=== PATIENT | female | born 1930 | race Caucasian/White ===

== ENCOUNTER 2017-06-04 17:20 | Emergency (ER) | payer MEDICARE, OTHER ==
[2014-11-10 16:21] VITALS: Ht 160 cm; Wt 63.5 kg
[~2017-06-04] VITALS: Ht 160 cm; Wt 63.5 kg
[~2017-06-04 17:20] MED LIST: ASPI81TA94 PO; CALC-703 PO; CEPH500C24 PO; CETI10CA8 PO; DOCU-299 PO; FESO8PT GT; FESO8PT PO; FURO-45 PO; GLUC-304 PO; LISI5TAB25 PO; LOR5 PO; LOR5/325 PO; MECL25TA9 PO; METO25TA93 PO; MULT-770 PO; NITR100C PO; ONDA4TAB PO; PRED20TA6 PO; SCOT TD; TOLT4CAP13 PO; Z-PAK PO
[2017-06-04] MEDS ORDERED: MECL12.5 PO (17:33)
--- NOTE | 2017-06-04 17:48 | ER Report ---
History and Physical Time Seen By MD: 17:48 Hx. of Stated Complaint: PATIENT REPORTS THAT SHE GOT DIZZ WHEN WALKING INTO THE BATHROOM AND FELL INTO HER BATHTUB. SHE HAS A SKIN TEAR ON HER RIGHT ARM HPI/ROS CHIEF COMPLAINT: Dizziness and fall HISTORY OF PRESENT ILLNESS: 87-year-old female patient presents to emergency room with complaint of a episode of dizziness and fall. Patient states she has a history of vertigo. She states she was going around the house clicking trash and adjust pick trash up in the bathroom when she became dizzy and fell into the bathtub. She states that she did not lose consciousness, she denies any headache, neck pain. Patient does have some tenderness to the low back. She denies any loss of bowel or bladder control. She states she has not taken any medication for this. Patient does have a skin tear to the left forearm. Patient doesn't have a current tetanus due to allergy. REVIEW OF SYSTEMS: Respiratory: No cough, no dyspnea. Cardiovascular: No chest pain, no palpitations. Gastrointestinal: No vomiting, no abdominal pain. Musculoskeletal: As noted above. Allergies: Coded Allergies: Tetanus Vaccines and Toxoid (Verified Allergy, Intermediate, 12/17/14) Home Meds Active Scripts Nitrofurantoin Monohyd/M-Cryst (MACROBID 100 MG CAPSULE) 100 Mg Capsule, 100 MG PO BID, #12 CAPSULE Prov:FIDE LINARES [facility] 06/04/17 Tramadol Hcl (TRAMADOL HCL) 50 Mg Tablet, 50 MG PO Q4-6H Y for PAIN, #6 TAB Prov:FIDE LINARES [facility] 06/04/17 Reported Medications Meclizine Hcl (MECLIZINE HCL) 12.5 Mg Tablet, 12.5 MG PO PRN 06/04/17 Furosemide (FUROSEMIDE) 20 Mg Tablet, 1 TAB PO DAILY, TAB 10/03/14 Aspirin (ASPIRIN) 81 Mg Tab.chew, 81 MG PO QDAY, TAB.CHEW TAKE 1 TABLET BY MOUTH EVERY DAY 10/03/14 Metoprolol Tartrate (METOPROLOL TARTRATE) 25 Mg Tablet, 1 TAB PO BID, TAB 10/03/14 Lisinopril (LISINOPRIL) 5 Mg Tablet, 5 MG PO QDAY, TAB 10/03/14 Fesoterodine Fumarate (TOVIAZ) 8 Mg Tabsr, 8 MG PO QHS 05/30/13 Past Medical/Surgical History Patient has a past medical history of hypertension, pneumonia, gallstones, hiatal hernia, cystocele, vertigo, where alcohol use. Patient has a surgical history of hysterectomy, tonsillectomy. Reviewed Nurses Notes: Yes Hx Smoking: No Smoking Status: Never Smoker Hx Substance Use Disorder: No Hx Alcohol Use: Yes (rare) Constitutional Vital Sign - Last 24 Hours 06/04/17 06/04/17 06/04/17 06/04/17 17:27 17:29 17:35 17:50 Pulse 72 74 71 Resp 20 15 B/P (MAP) 196/73 196/73 (114) Pulse Ox 96 96 92 06/04/17 06/04/17 06/04/17 06/04/17 18:00 18:05 18:40 18:45 Pulse 68 66 Resp 12 13 B/P (MAP) 167/80 (109) 181/73 (109) Pulse Ox 93 90 06/04/17 06/04/17 06/04/17 06/04/17 19:00 19:15 19:30 19:45 Pulse 70 ??? 68 74 Resp 14 45 15 10 B/P (MAP) 175/81 (112) 162/71 (101) Pulse Ox 96 92 06/04/17 19:50 Resp 37 Pulse Ox 92 Intake and Output 06/04/17 06/04/17 06/05/17 15:00 23:00 07:00 Intake Total 500 ml Balance 500 ml Physical Exam General Appearance: The patient is alert, has no immediate need for airway protection and no current signs of toxicity. ENT: Tympanic membranes are pearly-ledbetter, auditory canals are patent, mucous membranes are moist. Respiratory: Chest is non tender, lungs are clear to auscultation. Cardiac: regular rate and rhythm Gastrointestinal: Abdomen is soft and non tender, no masses, bowel sounds normal. Musculoskeletal: Neck: Neck is supple and non tender. Extremities have full range of motion and are non tender. Back: Patient has tenderness to the right side of the lumbar spine, some swelling is noted to palpation. Skin: No rashes or lesions. Patient has a skin tear to right forearm. [ ] DIFFERENTIAL DIAGNOSIS: After history and physical exam differential diagnosis was considered for intracranial bleed, 4 to go, viral syndrome, skin tear, fall. Medical Decision Making Data Points Result Diagram: 06/04/17180606/04/171806 Laboratory Hematology Test 06/04/17 18:07 06/04/17 18:20 Red Blood Count 3.64 M/uL (4.17-5.56) Mean Corpuscular Volume 89.8 fL (80.0-96.0) Mean Corpuscular Hemoglobin 30.2 pg (26.0-33.0) Mean Corpuscular Hemoglobin Concent 33.7 g/dL (32.0-36.0) Red Cell Distribution Width 13.5 % (11.5-14.5) Mean Platelet Volume 10.2 fL (7.2-11.1) Neutrophils (%) (Auto) 54.9 % (39.4-72.5) Lymphocytes (%) (Auto) 23.1 % (17.6-49.6) Monocytes (%) (Auto) 17.0 % (4.1-12.4) Eosinophils (%) (Auto) 4.1 % (0.4-6.7) Basophils (%) (Auto) 0.9 % (0.3-1.4) Nucleated RBC Relative Count (auto) 0.0 /100WBC Neutrophils # (Auto) 3.7 K/uL (2.0-7.4) Lymphocytes # (Auto) 1.6 K/uL (1.3-3.6) Monocytes # (Auto) 1.2 K/uL (0.3-1.0) Eosinophils # (Auto) 0.3 K/uL (0.0-0.5) Basophils # (Auto) 0.1 K/uL (0.0-0.1) Nucleated RBC Absolute Count (auto) 0.00 K/uL Sodium Level 134 mmol/L (137-145) Potassium Level 4.4 mmol/L (3.5-5.0) Chloride Level 100 mmol/L (98-107) Carbon Dioxide Level 27 mmol/L (22-31) Blood Urea Nitrogen 26 mg/dl (7-18) Creatinine 0.90 mg/dl (0.52-1.04) Glomerular Filtration Rate Calc 59.4 Random Glucose 77 mg/dl (75-110) Calcium Level 9.6 mg/dl (8.4-10.2) Total Bilirubin 0.3 mg/dl (0.2-1.3) Aspartate Amino Transf (AST/SGOT) 17 U/L (0-35) Alanine Aminotransferase (ALT/SGPT) 27 U/L (0-56) Alkaline Phosphatase 98 U/L (0-126) Troponin I < 0.012 ng/ml Total Protein 6.7 gm/dl (6.3-8.2) Albumin 3.7 g/dl (3.5-5.0) Urine Color Straw Urine Clarity Clear Urine pH 5.0 pH (4.8-9.5) Urine Specific [place] 1.008 Urine Protein Negative mg/dL (NEGATIVE) Urine Glucose (UA) Negative mg/dL (NEGATIVE) Urine Ketones Negative mg/dL (NEGATIVE) Urine Blood Negative (NEGATIVE) Urine Nitrite Negative (NEGATIVE) Urine Bilirubin Negative (NEGATIVE) Urine Urobilinogen Negative mg/dL (0.2-1.9) Urine Leukocyte Esterase Trace (NEGATIVE) Urine RBC 1 /HPF (0-2/HPF) Urine WBC 6 /HPF (0-5/HPF) Urine Squamous Epithelial Cells None /LPF (</=FEW) Urine Bacteria Negative /HPF (NONE-FEW) Urine Mucus None /HPF (NONE-FEW) Chemistry Test 06/04/17 18:07 06/04/17 18:20 White Blood Count 6.8 k/uL (4.5-11.0) Red Blood Count 3.64 M/uL (4.17-5.56) Hemoglobin 11.0 g/dL (12.0-16.0) Hematocrit 32.7 % (34.0-47.0) Mean Corpuscular Volume 89.8 fL (80.0-96.0) Mean Corpuscular Hemoglobin 30.2 pg (26.0-33.0) Mean Corpuscular Hemoglobin Concent 33.7 g/dL (32.0-36.0) Red Cell Distribution Width 13.5 % (11.5-14.5) Platelet Count 280 K/uL (150-450) Mean Platelet Volume 10.2 fL (7.2-11.1) Neutrophils (%) (Auto) 54.9 % (39.4-72.5) Lymphocytes (%) (Auto) 23.1 % (17.6-49.6) Monocytes (%) (Auto) 17.0 % (4.1-12.4) Eosinophils (%) (Auto) 4.1 % (0.4-6.7) Basophils (%) (Auto) 0.9 % (0.3-1.4) Nucleated RBC Relative Count (auto) 0.0 /100WBC Neutrophils # (Auto) 3.7 K/uL (2.0-7.4) Lymphocytes # (Auto) 1.6 K/uL (1.3-3.6) Monocytes # (Auto) 1.2 K/uL (0.3-1.0) Eosinophils # (Auto) 0.3 K/uL (0.0-0.5) Basophils # (Auto) 0.1 K/uL (0.0-0.1) Nucleated RBC Absolute Count (auto) 0.00 K/uL Glomerular Filtration Rate Calc 59.4 Calcium Level 9.6 mg/dl (8.4-10.2) Total Bilirubin 0.3 mg/dl (0.2-1.3) Aspartate Amino Transf (AST/SGOT) 17 U/L (0-35) Alanine Aminotransferase (ALT/SGPT) 27 U/L (0-56) Alkaline Phosphatase 98 U/L (0-126) Troponin I < 0.012 ng/ml Total Protein 6.7 gm/dl (6.3-8.2) Albumin 3.7 g/dl (3.5-5.0) Urine Color Straw Urine Clarity Clear Urine pH 5.0 pH (4.8-9.5) Urine Specific [place] 1.008 Urine Protein Negative mg/dL (NEGATIVE) Urine Glucose (UA) Negative mg/dL (NEGATIVE) Urine Ketones Negative mg/dL (NEGATIVE) Urine Blood Negative (NEGATIVE) Urine Nitrite Negative (NEGATIVE) Urine Bilirubin Negative (NEGATIVE) Urine Urobilinogen Negative mg/dL (0.2-1.9) Urine Leukocyte Esterase Trace (NEGATIVE) Urine RBC 1 /HPF (0-2/HPF) Urine WBC 6 /HPF (0-5/HPF) Urine Squamous Epithelial Cells None /LPF (</=FEW) Urine Bacteria Negative /HPF (NONE-FEW) Urine Mucus None /HPF (NONE-FEW) Urinalysis Test 06/04/17 18:20 Urine Color Straw Urine Clarity Clear Urine pH 5.0 pH (4.8-9.5) Urine Specific [place] 1.008 Urine Protein Negative mg/dL (NEGATIVE) Urine Glucose (UA) Negative mg/dL (NEGATIVE) Urine Ketones Negative mg/dL (NEGATIVE) Urine Blood Negative (NEGATIVE) Urine Nitrite Negative (NEGATIVE) Urine Bilirubin Negative (NEGATIVE) Urine Urobilinogen Negative mg/dL (0.2-1.9) Urine Leukocyte Esterase Trace (NEGATIVE) Urine RBC 1 /HPF (0-2/HPF) Urine WBC 6 /HPF (0-5/HPF) Urine Squamous Epithelial Cells None /LPF (</=FEW) Urine Bacteria Negative /HPF (NONE-FEW) Urine Mucus None /HPF (NONE-FEW) EKG/Imaging EKG Interpretation 12 lead EKG: Rhythm: normal sinus rhythm with a ventricular rate of 69 bpm. Amorita: normal QRS: normal ST segments: normal Imaging CT OF THE BRAIN WITHOUT CONTRAST HISTORY: Dizziness PROCEDURE: 3.0 mm contiguous axial sections were performed through the brain. Sagittal and coronal reformats were submitted. COMPARISON: CT brain December 07, 2016 FINDINGS: BRAIN: Brain and intracranial structures: There is no hemorrhage or CT evidence of acute infarct. A 9 mm partially calcified lesion along the falx anteriorly is likely a meningioma. This has not significantly changed. Periventricular and deep white matter hypoattenuation likely reflects chronic ischemic change. Cavernous carotid atherosclerosis is prominent. Orbits (included portions): Unremarkable. Scalp: Normal. Skull: Normal. Paranasal sinuses and mastoid air cells (included portions): Normal. IMPRESSION: No evidence of acute intracranial abnormality. 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 One of the following dose optimization techniques was utilized in the performance of this exam: Automated exposure control; adjustment of the mA and/ or kV according to the patient's size; or use of an iterative reconstruction technique. Specific details can be referenced in the facility's radiology CT exam operational policy. Report Dictated By: Claude Metz MD at 06/04/2017 7:01 PM Report E-Signed By: Claude Metz MD at 06/04/2017 7:07 PM INDICATION: dizziness, fall. DATE: 06/04/2017 7:10 PM. TECHNIQUE: L-SPINE W/O CONTRAST. Noncontrast axial CT imaging was performed of the lumbar spine with sagittal and coronal reformats. One of the following dose optimization techniques was utilized in the performance of this exam: Automated exposure control; adjustment of the mA and/or kV according to the patient's size ; or use of an iterative reconstruction technique. Specific details can be referenced in the facility's radiology CT exam operational policy. COMPARISON: December 07, 2016 CT. FINDINGS: Bone density is diffusely decreased. There is severe multilevel disc, endplate, and facet arthropathy in the lumbar spine. Disc and endplate degenerative findings are most notable at L4-5 with extensive endplate sclerosis. Facet arthropathy is severe L5-S1, especially on the right. There is no lumbar spine fracture or dislocation. IMPRESSION: Multilevel degenerative findings but no lumbar spine fracture or dislocation. Report Dictated By: Claude Metz MD at 06/04/2017 7:10 PM Report E-Signed By: Claude Metz MD at 06/04/2017 7:18 PM ED Course/Re-evaluation ED Course Patient was admitted to exam room, history and physical were obtained. Differential diagnoses were considered. On examination patient had no tenderness to the head, cervical spine or thoracic or lumbar spine. Patient did have some tenderness to the paraspinal muscles to the right of the lumbar spine. Due to the patient's age and due to the fall a CT scan of the head was done due to pain a CT scan of the lumbar spine was done. The imaging was negative, a CBC, CMP, urinalysis was done. Patient did have 6 white blood cells per high-power field and trace leukocyte esterase. She had no skin cells I believe that she is likely developing a urinary tract infection. Which we will treat with Macrobid and culture the urine. Patient also had an elevated BUN (26 ) when compared to her creatinine (0.9). I believe that she does have some dehydration. Patient was given a half liter of normal saline. After that we take the patient up and walk her. Patient had just a slight bit of dizziness. Patient also has skin tear to the right elbow. Was initially treated with LET and then cleaned and repaired by pulling the skin back over the wound and then covering with a Tegaderm. I discussed with patient she is to leave the Tegaderm on it falls off. She may go ahead and shower normally with that. Results of the CT scans were negative. I discussed this with the patient as well. Patient states she's feeling better would like to go home. We'll go ahead and discharge patient home. She states she would like something for pain and will give her a very limited supply of tramadol she can take as needed for pain. The patient and her family verbalized understanding and agreement with plan. Decision to Disposition Date: Jun 04, 2017 Decision to Disposition Time: 20:13 Depart Departure Latest Vital Signs Vital Signs Date Time Temp Pulse Resp B/P (MAP) Pulse Ox O2 Delivery O2 Flow Rate FiO2 06/04/17 19:50 37 92 06/04/17 19:45 74 06/04/17 19:30 162/71 (101) Impression: Primary Impression: Dizziness Additional Impressions: Dehydration UTI (urinary tract infection) Contusion of back Skin tear of elbow without complication Condition: Improved Disposition: HOME OR SELF-CARE New Scripts Nitrofurantoin Monohyd/M-Cryst (MACROBID 100 MG CAPSULE) 100 Mg Capsule 100 MG PO BID, #12 CAPSULE Prov: FIDE LINARES 06/04/17 Tramadol Hcl (TRAMADOL HCL) 50 Mg Tablet 50 MG PO Q4-6H Y for PAIN, #6 TAB Prov: FIDE LINARES 06/04/17 Patient Instructions: Dehydration (ED), Dizziness (ED) Additional Instructions: Increase fluid intake. Get plenty of rest. Limit activity by pain. Take the antibiotics as directed. Continue with your normal medications. You may apply ice to your back. Leave the dressing on your elbow until it falls off. It is fine to shower normally. We are culturing your urine and will call to change antibiotics if we need to. Problem Qualifiers Additional Impressions: UTI (urinary tract infection) Urinary tract infection type: acute cystitis Hematuria presence: without hematuria Qualified Codes: N30.00 - Acute cystitis without hematuria Contusion of back Encounter type: initial encounter Laterality: right Qualified Codes: S20.221A - Contusion of right back wall of thorax, initial encounter Skin tear of elbow without complication Encounter type: initial encounter Laterality: right Qualified Codes: S51.011A - Laceration without foreign body of right elbow, initial encounter FIDE LINARES Jun 04, 2017 17:48
[2017-06-04] MEDS ORDERED: TETRACAIN/EPI/LIDO GEL 3ML SYR TP ONE (18:00)
[2017-06-04 18:19] LABS: PLATELET COUNT, AUTOMATED 280 K/uL (150-450)
--- NOTE | 2017-06-04 18:22 | EKG ---
FACILITY: [facility] [place]IENT NAME: BELA STEWART : [id number] MR: [id number] V: [id number] EXAM DATE: ORDERING PHYSICIAN: FIDE LINARES TECHNOLOGIST: ARUNA Nicole Reason : TAUMA-ARM Blood Pressure : / mmHG Vent. Rate : 069 BPM Atrial Rate : 069 BPM P-R Int : 184 ms QRS Dur : 080 ms QT Int : 364 ms P-R-T Axes : 008 003 008 degrees QTc Int : 390 ms Normal sinus rhythm Normal ECG When compared with ECG of 11-MAY-2016 07:01, No significant change was found Confirmed by JOI MOCTEZUMA ([id number]) on 06/05/2017 6:24:17 AM Referred By: Confirmed By:JOI MOCTEZUMA
[2017-06-04] MEDS ORDERED: NS(*) 0.9% 500 ML BAG 500 ML IV ONE (18:45)
--- NOTE | 2017-06-04 19:12 | RADIOLOGY IMAGING REPORT ---
FACILITY: [facility] - [place] PATIENT NAME: Myriam Scruggs : 1930 MR: [id number] V: [id number] EXAM DATE: ORDERING PHYSICIAN: FIDE LINARES TECHNOLOGIST: Location: [facility] Patient: Myriam Scruggs : 1930 Visit/Account:[id number] Date of Sevice: 06/04/2017 CT OF THE BRAIN WITHOUT CONTRAST HISTORY: Dizziness PROCEDURE: 3.0 mm contiguous axial sections were performed through the brain. Sagittal and coronal r eformats were submitted. COMPARISON: CT brain December 07, 2016 FINDINGS: BRAIN: Brain and intracranial structures: There is no hemorrhage or CT evidence of acute infarct. A 9 mm par tially calcified lesion along the falx anteriorly is likely a meningioma. This has not significantly changed. Periventricular and deep white matter hypoattenuation likely reflects chronic ischemic [place] e. Cavernous carotid atherosclerosis is prominent. Orbits (included portions): Unremarkable. Scalp: Normal. Skull: Normal. Paranasal sinuses and mastoid air cells (included portions): Normal. IMPRESSION: No evidence of acute intracranial abnormality. 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 One of the following dose optimization techniques was utilized in the performance of this exam: Autom ated exposure control; adjustment of the mA and/or kV according to the patient's size; or use of an i terative reconstruction technique. Specific details can be referenced in the facility's radiology C T exam operational policy. Report Dictated By: Claude Metz MD at 06/04/2017 7:01 PM Report E-Signed By: Claude Metz MD at 06/04/2017 7:07 PM WSN:[id number]
--- NOTE | 2017-06-04 19:22 | RADIOLOGY IMAGING REPORT ---
FACILITY: [facility] PATIENT NAME: Myriam Scruggs : 1930 MR: [id number] V: [id number] EXAM DATE: ORDERING PHYSICIAN: FIDE LINARES TECHNOLOGIST: Location: [facility] - [place] Patient: Myriam Scruggs : 1930 Visit/Account:[id number] Date of Sevice: 06/04/2017 INDICATION: dizziness, fall. DATE: 06/04/2017 7:10 PM. TECHNIQUE: L-SPINE W/O CONTRAST. Noncontrast axial CT imaging was performed of the lumbar spine with sagittal and coronal reformats. One of the following dose optimization techniques was utilized in the performance of this exam: Automated exposure control; adjustment of the mA and/or kV according to th e patient's size; or use of an iterative reconstruction technique. Specific details can be referenc ed in the facility's radiology CT exam operational policy. COMPARISON: December 07, 2016 CT. FINDINGS: Bone density is diffusely decreased. There is severe multilevel disc, endplate, and facet arthropathy in the lumbar spine. Disc and endplate degenerative findings are most notable at L4-5 with extensive endplate sclerosis. Facet arthropathy is severe L5-S1, especially on the right. There is no lumbar s pine fracture or dislocation. IMPRESSION: Multilevel degenerative findings but no lumbar spine fracture or dislocation. Report Dictated By: Claude Metz MD at 06/04/2017 7:10 PM Report E-Signed By: Claude Metz MD at 06/04/2017 7:18 PM WSN:[id number]
[2017-06-04 19:30] VITALS: BP 162/71
[2017-06-04] MEDS ORDERED: TRAM-420 PO (20:10)
[2017-06-04] MEDS ORDERED: NITR-105 PO (20:10)
[2017-06-04] MEDS ORDERED: NITROFURANTOIN MONO 100 MG PO ONE (20:20)
[2017-06-04] MEDS ORDERED: traMADol 50 MG TAB TH 2 TAB/BOTTLE PO ONE (20:20)
== END 2017-06-04 20:27 | disposition home or self-care (01) ==
LOC: ER 17:33
DX: N30.00 Acute cystitis without hematuria (principal); E86.0 Dehydration; S20.221A Contusion of right back wall of thorax, initial encounter; S51.011A Laceration without foreign body of right elbow, initial encounter
CPT/HCPCS: 70450; 72131; 81001; 84484; 85025; 87088; 93005; 96360; 99284; A9270; J7040; 82040; 82247; 82310; 82374; 82435; 82565; 82947; 84075; 84132; 84155; 84295; 84450; 84460; 84520; C9399

== ENCOUNTER 2017-08-14 21:11 | Inpatient (IN) | payer MEDICARE, OTHER ==
[2014-11-10 16:21] VITALS: Wt 67.2 kg
[~2017-08-14 21:11] MED LIST changes: -DOCU-202 PO; -IRO150 PO; -PANT40TA65 PO; -POLY17PO21 PO; -POLY17PO25 PO; -ROSU5TAB18
[2017-08-14] MEDS ORDERED: POLY17PO25 PO (21:28)
[2017-08-14] MEDS ORDERED: fentaNYL CITR 100 MCG/2 ML AMP ONE (21:34)
[2017-08-14] MEDS ORDERED: fentaNYL CITR 100 MCG/2 ML AMP IVP ONE (21:40)
--- NOTE | 2017-08-14 21:41 | ER Report ---
History and Physical Time Seen By MD: 21:25 Hx. of Stated Complaint: PT REPORTS LOW ABDOMINAL PAIN, STARTING AFTER DINNER, NAUSEA HPI/ROS CHIEF COMPLAINT: abdominal pain HISTORY OF PRESENT ILLNESS: PT stated with 7/10 abdominal pain at about 8pm tonight. PT states that she had not felt well for a day or so but unable to discribe until tonight. + cramping. + nausea. NO vomiting. Pain is worse periumbilical. Thought she had to have a bm but was unable to due so. PT did have a normal bm this morning. no dysuria. no fevers. PT denies any chest pain. no sob. no uri symptoms. REVIEW OF SYSTEMS: Constitutional: No fever, no chills. Eyes: No discharge. ENT: No sore throat. Cardiovascular: No chest pain, no palpitations. Respiratory: No cough, no shortness of breath. Gastrointestinal: + abdominal pain, + nausea, no vomiting. Genitourinary: No hematuria. Musculoskeletal: No back pain. Skin: No rashes. Neurological: No headache. Allergies: Coded Allergies: Tetanus Vaccines and Toxoid (Verified Allergy, Intermediate, 12/17/14) Home Meds Active Scripts Tramadol Hcl (TRAMADOL HCL) 50 Mg Tablet, 50 MG PO Q4-6H Y for PAIN, #6 TAB Prov:FIDE LINARES CONSTRUCTION SALES REPRESENTATIVE 06/04/17 Reported Medications Polyethylene Glycol 3350 (MIRALAX) 17 Gm Powd.pack, 17 GM PO, PKT 08/14/17 Meclizine Hcl (MECLIZINE HCL) 12.5 Mg Tablet, 12.5 MG PO PRN 06/04/17 Furosemide (FUROSEMIDE) 20 Mg Tablet, 1 TAB PO DAILY, TAB 10/03/14 Aspirin (ASPIRIN) 81 Mg Tab.chew, 81 MG PO QDAY, TAB.CHEW TAKE 1 TABLET BY MOUTH EVERY DAY 10/03/14 Metoprolol Tartrate (METOPROLOL TARTRATE) 25 Mg Tablet, 1 TAB PO BID, TAB 10/03/14 Lisinopril (LISINOPRIL) 5 Mg Tablet, 5 MG PO QDAY, TAB 10/03/14 Fesoterodine Fumarate (TOVIAZ) 8 Mg Tabsr, 8 MG PO QHS 05/30/13 Discontinued Scripts Nitrofurantoin Monohyd/M-Cryst (MACROBID 100 MG CAPSULE) 100 Mg Capsule, 100 MG PO BID, #12 CAPSULE Prov:FIDE LINARES CONSTRUCTION SALES REPRESENTATIVE 06/04/17 Past Medical/Surgical History Pmhx: hypertension, pneumonia, gallstones, hiatal hernia, cystocele, vertigo Pshx: hysterectomy, tonsillectomy,shilo Reviewed Nurses Notes: Yes Old Medical Records Reviewed: Yes Hx Smoking: No Smoking Status: Never Smoker Hx Substance Use Disorder: No Hx Alcohol Use: Yes (rare) Constitutional Vital Sign - Last 24 Hours 08/14/17 08/14/17 08/14/17 08/14/17 21:11 21:13 21:15 21:18 Temp 99.8 Pulse ??? 77 Resp 16 B/P (MAP) 221/93 224/87 (132) 221/93 (135) Pulse Ox 98 O2 Delivery Room Air 08/14/17 08/14/17 08/14/17 08/14/17 21:26 21:30 21:41 21:56 Pulse 77 73 72 Resp 16 6 15 B/P (MAP) 201/115 (143) Pulse Ox 92 98 97 08/14/17 08/14/17 08/14/17 08/14/17 22:00 22:03 22:08 22:46 Pulse 78 Resp 21 B/P (MAP) 185/177 (180) 165/73 (103) 152/70 (97) Pulse Ox 90 08/14/17 08/14/17 08/14/17 08/14/17 22:53 23:00 23:08 23:20 Pulse 79 75 Resp 11 B/P (MAP) 165/72 (103) 170/106 (127) Pulse Ox 95 85 08/14/17 08/14/17 08/14/17 08/14/17 23:23 23:38 23:40 23:53 Pulse 78 71 71 Resp 10 19 B/P (MAP) 165/74 (104) Pulse Ox 96 96 96 Physical Exam General Appearance: The patient is alert, has no immediate need for airway protection and no signs of toxicity. Eyes: Pupils equal and round no pallor or injection, EOMI ENT: no pharyngeal erythema or exudates, Mucous membranes are moist, TM are nl b/l Respiratory: There are no retractions, lungs are clear to auscultation. Cardiovascular: Regular rate and rhythm. pulses are equal and symmetrical Gastrointestinal: Abdomen is soft with mild tendenrss epigastric and llq, no masses, bowel sounds normal, no guarding, no rigidity or rebound Neurological: Cranial nerves II-XII grossly intact, no sensory or motor loss Skin: Warm and dry, no rashes. Musculoskeletal: Neck is supple non tender, no vertebral tenderness Extremities are nontender, non swollen and have full range of motion. DIFFERENTIAL DIAGNOSIS: After history and physical exam differential diagnosis was considered for pancreatitis, colitis, diverticulitis, pud, ibs, cancer Medical Decision Making Data Points Result Diagram: 08/14/17211408/14/172114 Laboratory Hematology Test 08/14/17 21:15 08/14/17 22:00 Red Blood Count 4.03 M/uL (4.17-5.56) Mean Corpuscular Volume 79.8 fL (80.0-96.0) Mean Corpuscular Hemoglobin 25.7 pg (26.0-33.0) Mean Corpuscular Hemoglobin Concent 32.2 g/dL (32.0-36.0) Red Cell Distribution Width 15.5 % (11.5-14.5) Mean Platelet Volume 10.4 fL (7.2-11.1) Neutrophils (%) (Auto) 68.0 % (39.4-72.5) Lymphocytes (%) (Auto) 20.4 % (17.6-49.6) Monocytes (%) (Auto) 9.0 % (4.1-12.4) Eosinophils (%) (Auto) 1.4 % (0.4-6.7) Basophils (%) (Auto) 1.2 % (0.3-1.4) Nucleated RBC Relative Count (auto) 0.0 /100WBC Neutrophils # (Auto) 10.4 K/uL (2.0-7.4) Lymphocytes # (Auto) 3.1 K/uL (1.3-3.6) Monocytes # (Auto) 1.4 K/uL (0.3-1.0) Eosinophils # (Auto) 0.2 K/uL (0.0-0.5) Basophils # (Auto) 0.2 K/uL (0.0-0.1) Nucleated RBC Absolute Count (auto) 0.00 K/uL Sodium Level 134 mmol/L (137-145) Potassium Level 4.0 mmol/L (3.5-5.0) Chloride Level 94 mmol/L (98-107) Carbon Dioxide Level 24 mmol/L (22-31) Blood Urea Nitrogen 24 mg/dl (7-18) Creatinine 1.00 mg/dl (0.52-1.04) Glomerular Filtration Rate Calc 52.6 Random Glucose 157 mg/dl (75-110) Calcium Level 10.2 mg/dl (8.4-10.2) Total Bilirubin 0.4 mg/dl (0.2-1.3) Aspartate Amino Transf (AST/SGOT) 48 U/L (0-35) Alanine Aminotransferase (ALT/SGPT) 20 U/L (0-56) Alkaline Phosphatase 120 U/L (0-126) Total Protein 7.5 gm/dl (6.3-8.2) Albumin 4.3 g/dl (3.5-5.0) Lipase 191 U/L (23-300) Urine Color Yellow Urine Clarity Slightly-cloudy Urine pH 7.0 pH (4.8-9.5) Urine Specific Superior 1.017 Urine Protein Negative mg/dL (NEGATIVE) Urine Glucose (UA) Negative mg/dL (NEGATIVE) Urine Ketones 20 mg/dL (NEGATIVE) Urine Blood Negative (NEGATIVE) Urine Nitrite Negative (NEGATIVE) Urine Bilirubin Negative (NEGATIVE) Urine Urobilinogen Negative mg/dL (0.2-1.9) Urine Leukocyte Esterase Negative (NEGATIVE) Urine RBC 1 /HPF (0-2/HPF) Urine WBC 3 /HPF (0-5/HPF) Urine Squamous Epithelial Cells None /LPF (NONE-FEW) Urine Amorphous Crystals Few /HPF Urine Bacteria Negative /HPF (NONE-FEW) Urine Mucus None /HPF (NONE-FEW) Chemistry Test 08/14/17 21:15 08/14/17 22:00 White Blood Count 15.3 k/uL (4.5-11.0) Red Blood Count 4.03 M/uL (4.17-5.56) Hemoglobin 10.4 g/dL (12.0-16.0) Hematocrit 32.2 % (34.0-47.0) Mean Corpuscular Volume 79.8 fL (80.0-96.0) Mean Corpuscular Hemoglobin 25.7 pg (26.0-33.0) Mean Corpuscular Hemoglobin Concent 32.2 g/dL (32.0-36.0) Red Cell Distribution Width 15.5 % (11.5-14.5) Platelet Count 411 K/uL (150-450) Mean Platelet Volume 10.4 fL (7.2-11.1) Neutrophils (%) (Auto) 68.0 % (39.4-72.5) Lymphocytes (%) (Auto) 20.4 % (17.6-49.6) Monocytes (%) (Auto) 9.0 % (4.1-12.4) Eosinophils (%) (Auto) 1.4 % (0.4-6.7) Basophils (%) (Auto) 1.2 % (0.3-1.4) Nucleated RBC Relative Count (auto) 0.0 /100WBC Neutrophils # (Auto) 10.4 K/uL (2.0-7.4) Lymphocytes # (Auto) 3.1 K/uL (1.3-3.6) Monocytes # (Auto) 1.4 K/uL (0.3-1.0) Eosinophils # (Auto) 0.2 K/uL (0.0-0.5) Basophils # (Auto) 0.2 K/uL (0.0-0.1) Nucleated RBC Absolute Count (auto) 0.00 K/uL Glomerular Filtration Rate Calc 52.6 Calcium Level 10.2 mg/dl (8.4-10.2) Total Bilirubin 0.4 mg/dl (0.2-1.3) Aspartate Amino Transf (AST/SGOT) 48 U/L (0-35) Alanine Aminotransferase (ALT/SGPT) 20 U/L (0-56) Alkaline Phosphatase 120 U/L (0-126) Total Protein 7.5 gm/dl (6.3-8.2) Albumin 4.3 g/dl (3.5-5.0) Lipase 191 U/L (23-300) Urine Color Yellow Urine Clarity Slightly-cloudy Urine pH 7.0 pH (4.8-9.5) Urine Specific Superior 1.017 Urine Protein Negative mg/dL (NEGATIVE) Urine Glucose (UA) Negative mg/dL (NEGATIVE) Urine Ketones 20 mg/dL (NEGATIVE) Urine Blood Negative (NEGATIVE) Urine Nitrite Negative (NEGATIVE) Urine Bilirubin Negative (NEGATIVE) Urine Urobilinogen Negative mg/dL (0.2-1.9) Urine Leukocyte Esterase Negative (NEGATIVE) Urine RBC 1 /HPF (0-2/HPF) Urine WBC 3 /HPF (0-5/HPF) Urine Squamous Epithelial Cells None /LPF (NONE-FEW) Urine Amorphous Crystals Few /HPF Urine Bacteria Negative /HPF (NONE-FEW) Urine Mucus None /HPF (NONE-FEW) Urinalysis Test 08/14/17 22:00 Urine Color Yellow Urine Clarity Slightly-cloudy Urine pH 7.0 pH (4.8-9.5) Urine Specific Superior 1.017 Urine Protein Negative mg/dL (NEGATIVE) Urine Glucose (UA) Negative mg/dL (NEGATIVE) Urine Ketones 20 mg/dL (NEGATIVE) Urine Blood Negative (NEGATIVE) Urine Nitrite Negative (NEGATIVE) Urine Bilirubin Negative (NEGATIVE) Urine Urobilinogen Negative mg/dL (0.2-1.9) Urine Leukocyte Esterase Negative (NEGATIVE) Urine RBC 1 /HPF (0-2/HPF) Urine WBC 3 /HPF (0-5/HPF) Urine Squamous Epithelial Cells None /LPF (NONE-FEW) Urine Amorphous Crystals Few /HPF Urine Bacteria Negative /HPF (NONE-FEW) Urine Mucus None /HPF (NONE-FEW) EKG/Imaging EKG Interpretation nsr @ 74 with no acute changes ED Course/Re-evaluation Clinical Indication for ER IV: Hydration, IV Access ED Course check labs and ct Dr. Hernandez to admit. Unclear if pt has colitis, ileus vs psbo. WIll admit to observe due to pts age. Decision to Disposition Date: Aug 15, 2017 Decision to Disposition Time: 00:13 Depart Departure Latest Vital Signs Vital Signs Date Time Temp Pulse Resp B/P (MAP) Pulse Ox O2 Delivery O2 Flow Rate FiO2 08/14/17 23:53 71 96 08/14/17 23:40 165/74 (104) 08/14/17 23:38 19 08/14/17 21:13 99.8 Room Air Impression: Primary Impression: Abdominal pain Additional Impression: Enterocolitis Condition: Condition Unchanged Disposition: Admitted from ER Problem Qualifiers Primary Impression: Abdominal pain Abdominal location: periumbilical Qualified Codes: R10.33 - Periumbilical pain SHAWN CARRERA DO Aug 14, 2017 21:41
[2017-08-14 21:53] LABS: PLATELET COUNT, AUTOMATED 411 K/uL (150-450)
--- NOTE | 2017-08-14 21:58 | EKG ---
FACILITY: [facility] - [place] PATIENT NAME: BELA STEWART : [id number] MR: [id number] V: [id number] EXAM DATE: ORDERING PHYSICIAN: SHAWN CARRERA TECHNOLOGIST: STEVEN Test Reason : CARIDAC Blood Pressure : / mmHG Vent. Rate : 074 BPM Atrial Rate : 074 BPM P-R Int : 148 ms QRS Dur : 086 ms QT Int : 362 ms P-R-T Axes : 051 027 047 degrees QTc Int : 401 ms Normal sinus rhythm Normal ECG When compared with ECG of 04-JUN-2017 17:33, T wave amplitude has increased in Lateral leads Confirmed by AARON BROWN ([id number]) on 08/15/2017 7:09:18 AM Referred By: Confirmed By:AARON BROWN
[2017-08-14] MEDS ORDERED: NS(*) 0.9% 1000 ML BAG 1,000 ML IV ONE (22:05)
[2017-08-14] MEDS ORDERED: EMS NS 0.9%(*) 1000 ML BAG 1,000 ML IV ONE (22:10)
[2017-08-14] MEDS ORDERED: IOPAMIDOL 76% 75 ML INFUS BTL 75 ML ONE (22:16)
--- NOTE | 2017-08-14 23:43 | RADIOLOGY IMAGING REPORT ---
FACILITY: [facility] - [place] PATIENT NAME: Myriam Scruggs : 1930 MR: [id number] V: [id number] EXAM DATE: ORDERING PHYSICIAN: SHAWN CARRERA TECHNOLOGIST: Location: [facility] [place] Patient: Myriam Scruggs : 1930 Visit/Account:[id number] Date of Sevice: 08/14/2017 COMPUTED TOMOGRAPHY ABDOMEN AND PELVIS WITH INTRAVENOUS CONTRAST DATE OF EXAM: 08/14/2017 9:57 PM INDICATION: Periumbilical pain after dinner. History of cholecystectomy and hiatal hernia. COMPARISON: CTA abdomen and pelvis 11/10/2014. TECHNIQUE: Contrast enhanced abdomen and pelvis CT performed during the injection of 75 ml of Isovue 370. Sagittal and coronal reconstructions were performed. One of the following dose optimization te chniques was utilized in the performance of this exam: Automated exposure control; adjustment of the mA and/or kV according to the patient's size; or use of an iterative reconstruction technique. [facility] details can be referenced in the facility's radiology CT exam operational policy. FINDINGS: Lung bases: Mild scarring/atelectasis. Liver and hepatic vasculature: Normal. Gallbladder and bile ducts: Cholecystectomy. Spleen: Normal. Pancreas: Normal. Adrenals: Normal. Kidneys, ureters and bladder: No acute bony or suspicious lesion. Kidneys are mildly atrophic. Retroperitoneum and aorta: Nonaneurysmal aorta with mild atherosclerosis. No adenopathy. GI tract, mesentery and peritoneum: There are multiple prominent fluid filled loops of distal small bowel, as well as fluid in the proximal colon. There is likely a degree of associated wall thickenin g and enhancement. Small bowel loops measure up to 3.4 cm in diameter. The terminal ileum is decomp ressed. Small volume of free fluid the abdomen and pelvis is likely reactive. No pneumatosis or pneumoperito neum. Normal appendix. Distal esophagus is fluid-filled. Severe sigmoid diverticulosis. Uterus and adnexa: Hysterectomy. Bones and soft tissues: No acute abnormality or suspicious lesion. Remote right rib fractures. Mil d rightward curvature of the lumbar spine with moderate multilevel spondylosis. IMPRESSION: 1. Suspected infectious or inflammatory enterocolitis with associated reactive free fluid. Some of the small bowel loops measuring up to 3.4 cm in diameter, and a degree of ileus or obstruction is not excluded. 2. Fluid in the distal esophagus may indicate reflux or dysmotility. Dr. Wilkinson discussed this case with SHAWN CARRERA on 08/14/2017 11:39 PM. Report Dictated By: Alvaro Wilkinson MD at 08/14/2017 11:25 PM Report E-Signed By: Alvaro Wilkinson MD at 08/14/2017 11:39 PM WSN:[id number]
[2017-08-15 01:19] VITALS: BP 145/93
[2017-08-15] MEDS ORDERED: ROSU5TAB18 (01:41)
[2017-08-15] MEDS ORDERED: NS(*) 0.9% 1000 ML BAG 1,000 ML IV PRN ×2 (01:48→09:01)
[2017-08-15] MEDS ORDERED: PROMETHAZINE 25 MG/ML 1 ML AMP IVP PRN (01:50)
[2017-08-15] MEDS ORDERED: MORPHINE 2 MG/ML SYR IVP PRN (01:50)
--- NOTE | 2017-08-15 02:04 | History & Physical ---
History of Present Illness Chief Complaint Abdominal pain History of Present Illness This patient presented to the emergency room complaining of the abrupt onset on centralized abdominal pain. Her symptoms started right after dinner, and she felt as though she had to have a bowel movement. She could not have the bowel movement and her last was more than 24hrs ago. She denies any nausea, vomiting , diarrhea, or fever. Her pain was resolved in the emergency department after receiving medications. History Problems: (1) History of cholecystectomy (2) Essential hypertension (3) Positional vertigo Status: Chronic Home Meds Active Scripts Tramadol Hcl (TRAMADOL HCL) 50 Mg Tablet, 50 MG PO Q4-6H Y for PAIN, #6 TAB Prov:FIDE LINARES BRANCH ASSOCIATE TELLER 06/04/17 Reported Medications Rosuvastatin Calcium (Rosuvastatin Calcium) Unknown Strength Tablet 08/15/17 Polyethylene Glycol 3350 (MIRALAX) 17 Gm Powd.pack, 17 GM PO, PKT 08/14/17 Meclizine Hcl (MECLIZINE HCL) 12.5 Mg Tablet, 12.5 MG PO PRN 06/04/17 Furosemide (FUROSEMIDE) 20 Mg Tablet, 1 TAB PO DAILY, TAB 10/03/14 Aspirin (ASPIRIN) 81 Mg Tab.chew, 81 MG PO QDAY, TAB.CHEW TAKE 1 TABLET BY MOUTH EVERY DAY 10/03/14 Metoprolol Tartrate (METOPROLOL TARTRATE) 25 Mg Tablet, 1 TAB PO BID, TAB 10/03/14 Lisinopril (LISINOPRIL) 5 Mg Tablet, 5 MG PO QDAY, TAB 10/03/14 Fesoterodine Fumarate (TOVIAZ) 8 Mg Tabsr, 8 MG PO QHS 05/30/13 Discontinued Scripts Nitrofurantoin Monohyd/M-Cryst (MACROBID 100 MG CAPSULE) 100 Mg Capsule, 100 MG PO BID, #12 CAPSULE Prov:FIDE LINARES BRANCH ASSOCIATE TELLER 06/04/17 Allergies: Coded Allergies: Tetanus Vaccines and Toxoid (Verified Allergy, Intermediate, 12/17/14) Patient History: FH: CHF (congestive heart failure) MOTHER, , Age:95 FH: breast cancer CHILD, Age:63, Onset:50's - 60 FH: diabetes mellitus FATHER, , Age:60 years and older Hx Smoking: No Smoking Status: Never Smoker Caffeine Intake: Coffee Caffeine/Cups Per Day: 2 Hx Alcohol Use: Yes (rare) Hx Substance Use Disorder: No Review of Systems All Systems Reviewed/Normal: Yes, Except as Noted Gastrointestinal: No Nausea, No Vomiting, No Diarrhea, Abdominal Pain Exam Vital Signs Vital Signs Date Time Temp Pulse Resp B/P (MAP) Pulse Ox O2 Delivery O2 Flow Rate FiO2 08/15/17 01:19 98.8 79 16 145/93 (110) 97 Nasal Cannula 2.0 Neuro: No Gross deficits Eyes: PERRLA Cardiovascular: Regular Rate and Rhythm Respiratory: Clear to Auscultation GI: Other (Mild epigastric tenderness, no rebound or guarding.) Extremities: No Edema Integumentary: No Cyanosis Medical Decision Making Data Points Result Diagram: 08/14/17211408/14/172114 EKG / Imaging Imaging CT abdomen and pelvis reviewed. Assessment and Plan Problems: (1) Abdominal pain Status: Acute Assessment & Plan: She did present with acute onset abdominal pain, but is not having diarrhea or vomiting. Her CT scan was read to be consistent with infectious/inflammatory colitis, but her presentation is more consistent with early obstruction. We have placed her NPO and a KUB is ordered for the morning. A lactate has also been ordered. (2) Essential hypertension Assessment & Plan: She is on chronic treatment with metoprolol and lisinopril. (3) Positional vertigo Status: Chronic Assessment & Plan: She is on chronic treatment with meclizine. (4) Monoclonal gammopathy Status: Acute Assessment & Plan: She is followed through the cancer center. Venous Thromboembolism Antithrombotics Is Pt On Any Antithrombotics?: No Exam Sepsis Risk: No Definite Risk Problem Qualifiers (1) Abdominal pain: Abdominal location: periumbilical Qualified Codes: R10.33 - Periumbilical pain AARON BROWN DO Aug 15, 2017 02:04
[2017-08-15 05:40] LABS: PLATELET COUNT, AUTOMATED 262 K/uL (150-450)
--- NOTE | 2017-08-15 06:25 | RADIOLOGY IMAGING REPORT ---
FACILITY: [facility] - [place] PATIENT NAME: Myriam Scruggs : 1930 MR: [id number] V: [id number] EXAM DATE: ORDERING PHYSICIAN: AARON BROWN TECHNOLOGIST: Location: [facility] Patient: Myriam Scruggs : 1930 Visit/Account:[id number] Date of Sevice: 08/15/2017 KUB SINGLE VIEW ABDOMEN COMPARISONS: None. ADDITIONAL PERTINENT HISTORY: Obstruction FINDINGS: Lung bases: Negative. Supine evidence of free air: None. Bowel gas pattern: Increased stool noted within the rectosigmoid colon. No dilated loops of bowel to suggest obstruction at this time. Surrounding soft tissues and solid organs: Negative. Osseous structures: Mild scoliotic curvature convex to the right centered at T12-L1. Spondylitic connor ge involving the lower lumbar spine. IMPRESSION: 1. Findings of underlying constipation. 2. No other abnormality noted. Specifically no findings to suggest obstruction at this time. Report Dictated By: Carlos Perez MD at 08/15/2017 6:17 AM Report E-Signed By: Carlos Perez MD at 08/15/2017 6:18 AM WSN:[id number]
[2017-08-15 08:00] VITALS: BP 124/54
[2017-08-15] MEDS ORDERED: BISACODYL 10 MG SUPP PR ONE (09:00)
[2017-08-15] MEDS ORDERED: INFLUENZA VIRUS VAC 0.5 ML SYR IM ONLY ONE (10:00)
--- NOTE | 2017-08-15 10:06 | Hospitalist Progress Note ---
Subjective Progress Notes Subjective She reports feeling much improved. Appetite has returned. No N/V. She has not had BM since admit. Physical Exam Vital Signs Date Time Temp Pulse Resp B/P (MAP) Pulse Ox O2 Delivery O2 Flow Rate FiO2 08/15/17 08:00 99.4 70 16 124/54 (77) 96 Nasal Cannula 1.0 Intake and Output 08/16/17 07:00 # Voids 1 General Appearance: Alert, Awake, Other (hard of hearing) Cardiovascular: Other (Regular with distant tones) Respiratory: Clear to Auscultation GI: Other (Soft/BS present, but hypoactive) Extremities: Warm, Perfused Psych: Alert & Oriented X3 Result Diagram: 08/15/1752308/15/17523 Assessment and Plan Problems: (1) Abdominal pain Status: Acute Assessment & Plan: She did present with acute onset abdominal pain. She is not having diarrhea or vomiting. Her CT scan was read to be consistent with infectious/inflammatory colitis, but her presentation is more consistent with early obstruction/constipation. Lactate is normal. We initially placed her NPO. Follow up KUB is more consistent with constipation. Will try Dulcolax suppository/Fleets enema. Will resume oral intake as well. (2) Essential hypertension Assessment & Plan: She is on chronic treatment with metoprolol and lisinopril. (3) Positional vertigo Status: Chronic Assessment & Plan: She is on chronic treatment with meclizine. (4) Monoclonal gammopathy Status: Acute Assessment & Plan: She is followed through the cancer center. (5) Anemia Status: Acute Assessment & Plan: Significant drop from previous levels. Will re-check lab later today. Further evaluation if persistent. Exam Sepsis Risk: No Definite Risk Problem Qualifiers (1) Abdominal pain: Abdominal location: periumbilical Qualified Codes: R10.33 - Periumbilical pain ALANNA MORIN MD Aug 15, 2017 10:06
[2017-08-15 11:30] VITALS: BP 127/55
[2017-08-15 14:24] VITALS: BP 135/58
[2017-08-15 20:23] VITALS: BP 136/56
[2017-08-15] MEDS: POLYETHYLENE GLYCOL 17 GM PKT PO SCH (20:25)
[2017-08-15 23:20] VITALS: BP 154/58
[2017-08-16 06:04] LABS: PLATELET COUNT, AUTOMATED 215 K/uL (150-450)
[2017-08-16 08:09] VITALS: BP 157/68
[2017-08-16] MEDS ORDERED: MAGNESIUM HYDROXIDE* 30ML UDCP PO PRN (08:15)
[2017-08-16] MEDS ORDERED: BISACODYL 10 MG SUPP PR PRN (08:15)
[2017-08-16] MEDS: DOCUSATE SODIUM 100 MG CAP PO SCH ×2 (10:01→20:41)
[2017-08-16 10:58] VITALS: BP 145/57
--- NOTE | 2017-08-16 12:40 | Hospitalist Progress Note ---
Subjective Progress Notes Subjective Overall, she has had improvement in her abdominal discomfort, but not to baseline. No BM overnight. Physical Exam Vital Signs Date Time Temp Pulse Resp B/P (MAP) Pulse Ox O2 Delivery O2 Flow Rate FiO2 08/16/17 10:58 98.0 85 12 145/57 (86) 94 Nasal Cannula 1.0 Intake and Output 08/17/17 07:00 Intake Total 240 ml Balance 240 ml Intake Oral 240 ml # Voids 2 # Bowel Movements 2 General Appearance: Alert, Awake, No Acute Distress GI: Soft and Non-Tender (Mild discomfort with deep palpation. Active BS.) Result Diagram: 08/16/17 0545 08/16/17 0545 Assessment and Plan Problems: (1) Abdominal pain Status: Acute Assessment & Plan: She did present with acute onset abdominal pain. She is not having diarrhea or vomiting. Her CT scan was read to be consistent with infectious/inflammatory colitis, but her presentation is more consistent with early obstruction/constipation. Lactate is normal. Follow up KUB is more consistent with constipation. She is to be put on a bowel regimen with Miralax , docusate, prn MOM and prn dulcolax. (2) Anemia Status: Acute Assessment & Plan: Significant drop from previous levels. Iron/ferritin studies are c/w iron deficiency. 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 Dr. Hinojosa thought it was more likely related to iron loss. I will discuss with the patient about a colonoscopy during this admission. Her last was over 10 years ago. Will not transfuse as she is not symptomatic nor does she have an CAD hx. (3) Essential hypertension Assessment & Plan: She is on chronic treatment with metoprolol and lisinopril. (4) Positional vertigo Status: Chronic Assessment & Plan: She is on chronic treatment with meclizine. (5) Monoclonal gammopathy Status: Acute Assessment & Plan: She is followed through the cancer center. Exam Sepsis Risk: No Definite Risk Problem Qualifiers (1) Abdominal pain: Abdominal location: periumbilical Qualified Codes: R10.33 - Periumbilical pain JOI MOCTEZUMA MD Aug 16, 2017 12:40
[2017-08-16 14:46] VITALS: BP 163/69
[2017-08-16] MEDS ORDERED: BISACODYL 5 MG TABEC PO ONE (17:15)
[2017-08-16] MEDS ORDERED: PEG (High)/E-LYTE SOLN 4000 ML PO ONE ×2 (17:15→18:00)
--- NOTE | 2017-08-16 17:19 | General Surgery Consultation ---
History of Present Illness Requesting Physician dr ramos Reason for Consult anemia Chief Complaint constipation History of Present Illness 87 yo female with a history of htn presented with abdominal pain and constipation. ct suggested a colitis. she was found to be anemic. she denies abdominal pain today. no history of ulcers. she does not smoke or drink, no use of nsaids. she has not noticed any rectal bleeding. History Home Meds Reported Medications Meclizine Hcl (MECLIZINE HCL) 12.5 Mg Tablet, 12.5 MG PO PRN 06/04/17 Furosemide (FUROSEMIDE) 20 Mg Tablet, 10 MG PO DAILY Y for DISCOMFORT, TAB pt stated MD told her to take as needed for swelling in the legs 10/03/14 Aspirin (ASPIRIN) 81 Mg Tab.chew, 81 MG PO QDAY, TAB.CHEW TAKE 1 TABLET BY MOUTH EVERY DAY 10/03/14 Metoprolol Tartrate (METOPROLOL TARTRATE) 25 Mg Tablet, 1 TAB PO BID, TAB 10/03/14 Lisinopril (LISINOPRIL) 5 Mg Tablet, 5 MG PO QDAY, TAB 10/03/14 Fesoterodine Fumarate (TOVIAZ) 8 Mg Tabsr, 8 MG PO QHS 05/30/13 Discontinued Reported Medications Rosuvastatin Calcium (Rosuvastatin Calcium) Unknown Strength Tablet 08/15/17 Polyethylene Glycol 3350 (MIRALAX) 17 Gm Powd.pack, 17 GM PO, PKT 08/14/17 Discontinued Scripts Tramadol Hcl (TRAMADOL HCL) 50 Mg Tablet, 50 MG PO Q4-6H Y for PAIN, #6 TAB Prov:FIDE LINARES SAFETY REPRESENTATIVE 06/04/17 Nitrofurantoin Monohyd/M-Cryst (MACROBID 100 MG CAPSULE) 100 Mg Capsule, 100 MG PO BID, #12 CAPSULE Prov:FIDE LINARES SAFETY REPRESENTATIVE 06/04/17 Allergies: Coded Allergies: Tetanus Vaccines and Toxoid (Verified Allergy, Intermediate, 12/17/14) Family History: FH: CHF (congestive heart failure) MOTHER, , Age:95 FH: breast cancer CHILD, Age:63, Onset:50's - 60 FH: diabetes mellitus FATHER, , Age:60 years and older Exam Vital Signs Vital Signs Date Time Temp Pulse Resp B/P (MAP) Pulse Ox O2 Delivery O2 Flow Rate FiO2 08/16/17 14:46 98.6 16 163/69 (100) 95 Nasal Cannula 0.5 08/16/17 10:58 85 General Appearance: Alert, Awake, No Acute Distress GI: Abd Soft and Non-Tender Medical Decision Making Data Points Result Diagram: 08/16/17 0545 08/16/17 0545 Assessment and Plan Problems: (1) Anemia Status: Acute Assessment & Plan: Significant drop from previous levels. Iron/ferritin studies are c/w iron deficiency. 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 Dr. Hinojosa thought it was more likely related to iron loss. I will discuss with the patient about a colonoscopy during this admission. Her last was over 10 years ago. Will not transfuse as she is not symptomatic nor does she have an CAD hx. 08/16/17 will do endoscopies tomorrow Copies to: KESHA HU MD Venous Thromboembolism Antithrombotics Is Pt On Any Antithrombotics?: No KESHA HU MD Aug 16, 2017 17:19
[2017-08-16 19:17] VITALS: BP 167/60
[2017-08-16] MEDS: POLYETHYLENE GLYCOL 17 GM PKT PO SCH (20:41)
[2017-08-16 22:44] VITALS: BP 158/85
[2017-08-17] VITALS (15 sets, daily range): BP systolic 142–181; BP diastolic 55–93
[2017-08-17 06:12] LABS: PLATELET COUNT, AUTOMATED 241 K/uL (150-450)
[2017-08-17] MEDS ORDERED: PROPOFOL EMUL(*) 10MG/ML 20 ML 40 ML ONE (07:06)
--- NOTE | 2017-08-17 07:27 | General Surgery Progress Note ---
Subjective Progress Notes Subjective no complaints Physical Exam Vital Signs Date Time Temp Pulse Resp B/P (MAP) Pulse Ox O2 Delivery O2 Flow Rate FiO2 08/17/17 07:14 98.1 70 16 148/55 (86) 92 Room Air 08/16/17 19:17 1.0 Intake and Output 08/18/17 07:00 # Voids 1 # Bowel Movements 1 GI: Soft and Non-Tender, Other (multiple bms, no blood) Result Diagram: 08/17/17 0532 08/17/17 0532 Assessment and Plan Problems: (1) Anemia Status: Acute Assessment & Plan: Significant drop from previous levels. Iron/ferritin studies are c/w iron deficiency. 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 Dr. Hinojosa thought it was more likely related to iron loss. I will discuss with the patient about a colonoscopy during this admission. Her last was over 10 years ago. Will not transfuse as she is not symptomatic nor does she have an CAD hx. 08/16/17 will do endoscopies tomorrow 08/17/17 endoscopy today Exam Sepsis Risk: No Definite Risk KESHA HU MD Aug 17, 2017 07:27
[2017-08-17] MEDS ORDERED: NS(*) 0.9% 1000 ML BAG 1,000 ML IV PRN (08:25)
[2017-08-17] MEDS: DOCUSATE SODIUM 100 MG CAP PO SCH ×2 (08:41→20:54)
--- NOTE | 2017-08-17 09:16 | Hospitalist Progress Note ---
Subjective Progress Notes Subjective The patient states she is a bit sore due to her clean out but otherwise is feeling well. She denies dizziness or lightheadedness. Physical Exam Vital Signs Date Time Temp Pulse Resp B/P (MAP) Pulse Ox O2 Delivery O2 Flow Rate FiO2 08/17/17 07:14 98.1 70 16 148/55 (86) 92 Room Air 08/16/17 19:17 1.0 Intake and Output 08/18/17 07:00 # Voids 2 # Bowel Movements 2 General Appearance: Alert, Awake, No Acute Distress Neuro: No Gross deficits Eyes: PERRLA Cardiovascular: Regular Rate and Rhythm Respiratory: Clear to Auscultation GI: Soft and Non-Tender Extremities: Warm, Perfused Psych: Appropriate Mood & Affect Result Diagram: 08/17/17 0532 08/17/17 0532 Assessment and Plan Problems: (1) Abdominal pain Status: Acute Assessment & Plan: She did present with acute onset abdominal pain. She was not having diarrhea or vomiting. Her CT scan was read to be consistent with infectious/inflammatory colitis, but her presentation is more consistent with early obstruction/constipation. Lactate is normal. Follow up KUB is more consistent with constipation. She was placed on a bowel regimen with Miralax, docusate, prn MOM and prn dulcolax. She also was found to have iron deficiency anemia and underwent clean out last pm for colonoscopy today with Dr. Nascimento. (2) Anemia Status: Acute Assessment & Plan: Significant drop from previous levels. Iron/ferritin studies are c/w iron deficiency. 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 Dr. Hinojosa thought it was more likely related to iron loss. The patient will undergo colonoscopy later this morning. Her last was over 10 years ago. Will not transfuse as she is not symptomatic nor does she have an CAD hx. (3) Essential hypertension Assessment & Plan: She is on chronic treatment with metoprolol and lisinopril. (4) Positional vertigo Status: Chronic Assessment & Plan: She is on chronic treatment with meclizine. (5) Monoclonal gammopathy Status: Acute Assessment & Plan: She is followed through the cancer center. Time Spent on Plan of Care: < 30 min Exam Sepsis Risk: No Definite Risk Problem Qualifiers (1) Abdominal pain: Abdominal location: periumbilical Qualified Codes: R10.33 - Periumbilical pain YARI MORIN MD Aug 17, 2017 09:16
[2017-08-17] MEDS ORDERED: NORMOSOL R SOLN(*) 1000 ML BAG 1,000 ML IV ONE (11:30)
[2017-08-17] MEDS ORDERED: PROPOFOL EMUL(*) 10MG/ML 20 ML 20 ML ONE (13:10)
--- NOTE | 2017-08-17 13:43 | Post Operative Progress Note ---
Post Operative Progress Note Date: Aug 17, 2017 Time: 13:41 Surgeon: FRITZ Anesthesia: dr shi Pre-Op Diagnosis: anemia Post-Op Diagnosis: distal esophagitis and hiatal hernia left colon diverticulosis Procedure(s): egd and colonoscopy KESHA HU MD Aug 17, 2017 13:43
[2017-08-17] MEDS: PANTOPRAZOLE SOD 40 MG TABEC PO SCH (14:58)
[2017-08-17] MEDS: POLYSACCHARIDE IRON COM 150 MG PO SCH (18:04)
--- NOTE | 2017-08-17 20:47 | OPERATIVE REPORT 1 ---
EVENT DATE: August 17, 2017 SURGEON: Nixon Nascimento MD ANESTHESIOLOGIST: Pieter Mendosa MD ANESTHESIA: Sedation. PREOPERATIVE DIAGNOSIS Anemia. POSTOPERATIVE DIAGNOSES 1. Hiatal hernia. 2. Distal esophagitis. PROCEDURE PERFORMED Esophagogastroduodenoscopy. DESCRIPTION OF PROCEDURE The patient was placed in the left lateral decubitus position and given intravenous sedation. Flexible gastroscope was inserted and advanced without difficulty. It passed into the stomach which was empty, through the pylorus, and into second and third portions of the duodenum which were normal. The duodenal bulb was normal. Pylorus was normal. Antrum was normal. Body of the stomach was normal. Scope was retroflexed. There were no fundic lesions. She had a hiatal hernia. Scope was then slowly withdrawn. At GE junction, she had some evidence of esophagitis. No discrete ulcer. No narrowing. No stricture. The more proximal esophagus appeared to be normal. The patient tolerated the procedure well. No apparent complication. [facility]
[2017-08-17] MEDS: POLYETHYLENE GLYCOL 17 GM PKT PO SCH (20:54)
[2017-08-17] MEDS: METOPROLOL TART 50 MG TAB PO SCH (20:54)
--- NOTE | 2017-08-17 21:02 | OPERATIVE REPORT 1 ---
EVENT DATE: August 17, 2017 SURGEON: Nixon Nascimento MD ANESTHESIOLOGIST: Pieter Mendosa MD ANESTHESIA: Sedation. PREOPERATIVE DIAGNOSIS Anemia. POSTOPERATIVE DIAGNOSIS Left colonic diverticulosis. PROCEDURE PERFORMED Colonoscopy. DESCRIPTION OF PROCEDURE The patient was placed in the left lateral decubitus position. Rectal exam was unremarkable. Flexible colonoscope was inserted and advanced without difficulty to about 40 cm, then we had quite a difficult time getting past the sigmoid colon because of the sharp turns, angulations, and the diverticula. We had to change positions, but we were able to get by this area. We were then able to advance over to the cecum. The ileocecal valve, base of the cecum were identified. No tumors or polyps were noted in the cecum. The scope was then slowly withdrawn. She had some thick liquid stool that made perfect visualization impossible; however, we got a pretty good look, and there was no evidence of any inflammation or tumors in the right colon, transverse colon. In the descending and sigmoid colon, she had multiple diverticula. No evidence of diverticulitis. No specific narrowing was noted. Rectum was normal. Scope was retroflexed. That appeared to be normal. [facility]
[2017-08-18 04:57] VITALS: BP 171/74
[2017-08-18 05:39] LABS: PLATELET COUNT, AUTOMATED 223 K/uL (150-450)
[2017-08-18 07:54] VITALS: BP 151/73
[2017-08-18] MEDS: POLYSACCHARIDE IRON COM 150 MG PO SCH (08:32)
[2017-08-18] MEDS ORDERED: LISINOPRIL 5 MG TAB PO SCH (09:00)
[2017-08-18] MEDS ORDERED: DOCU-202 PO (09:03)
[2017-08-18] MEDS ORDERED: IRO150 PO (09:03)
[2017-08-18] MEDS ORDERED: POLY17PO21 PO (09:03)
[2017-08-18] MEDS ORDERED: PANT40TA65 PO (09:03)
--- NOTE | 2017-08-18 09:22 | Hospitalist Depart ---
Discharge Summary Reason for Hosp/Final Diag: (1) Abdominal pain Status: Acute Hospital Course & Plan: She did present with acute onset abdominal pain. She was not having diarrhea or vomiting. Her CT scan was read to be consistent with infectious/inflammatory colitis, but her presentation was more consistent with early obstruction/constipation. Lactate was normal. Follow up KUB was more consistent with constipation. She was placed on a bowel regimen with Miralax and docusate. She also was found to have iron deficiency anemia and underwent EGD and colonoscopy with Dr. Nascimento. The only significant abnormalities found were distal esophagitis and left sided diverticulosis. She was placed on PPI therapy with Protonix and her aspirin therapy was stopped (at least temporarily). Her iron studies did show a component of iron deficiency, so she was started on iron therapy as well. She will need follow up lab with her PCP/ hematology in the near future. (2) Anemia Status: Acute Hospital Course & Plan: Significant drop from previous levels. Iron/ferritin studies are consistent with iron deficiency. 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 Dr. Lovelace thought it was more likely related to iron loss. The patient did undergo colonoscopy, which did not reveal any significant abnormalities, but her EGD did show distal esophagitis. We did not transfuse as she was not symptomatic nor does she have a significant cardiac/ pulmonary history. She will have close follow up with her PCP and hematology. (3) Essential hypertension Hospital Course & Plan: She is on chronic treatment with metoprolol and lisinopril. (4) Positional vertigo Status: Chronic Hospital Course & Plan: She is on chronic treatment with meclizine. (5) Monoclonal gammopathy Status: Acute Hospital Course & Plan: She is followed through the cancer center with Dr. Tarun Spears. Departure Weight (Pounds): 148 Weight (Ounces): 3.0 Result Diagram: 08/18/1751308/18/17513 Item Value Date Time Sodium Level 134 mmol/L L 08/14/172114 Potassium Level 4.0 mmol/L 08/14/172114 Chloride Level 94 mmol/L L 08/14/172114 Carbon Dioxide Level 24 mmol/L 08/14/172114 Blood Urea Nitrogen 24 mg/dl H 08/14/172114 Creatinine 1.00 mg/dl 08/14/172114 Glomerular Filtration Rate Calc 52.6 08/14/172114 Random Glucose 157 mg/dl H 08/14/172114 Calcium Level 10.2 mg/dl 08/14/172114 Total Bilirubin 0.4 mg/dl 08/14/172114 Aspartate Amino Transf (AST/SGOT) 48 U/L H 08/14/172114 Alanine Aminotransferase (ALT/SGPT) 20 U/L 08/14/172114 Alkaline Phosphatase 120 U/L 08/14/172114 Total Protein 7.5 gm/dl 08/14/172114 Albumin 4.3 g/dl 08/14/172114 Lipase 191 U/L 08/14/172114 Vitamin B12 Level 283 pg/mL 08/16/17 0545 Folate >22.3 ng/mL 08/16/17 0545 Iron Level 23 ug/dl L 08/16/17 0545 Total Iron Binding Capacity 373 ug/dl 08/16/17 0545 Percent Iron Saturation 6.2 % 08/16/17 0545 Ferritin 11 ng/ml 08/16/17 0545 White Blood Count 15.3 k/uL H 08/14/172114 Hemoglobin 10.4 g/dL L 08/14/172114 Hematocrit 32.2 % L 08/14/172114 Platelet Count 411 K/uL 08/14/172114 Mean Corpuscular Volume 79.8 fL L 08/14/172114 White Blood Count 5.2 k/uL 08/16/17 0545 Hemoglobin 7.6 g/dL *L 08/16/17 0545 Hematocrit 23.8 % *L 08/16/17 0545 Platelet Count 215 K/uL 08/16/17 0545 Urine Color Yellow 08/14/172199 Urine Clarity Slightly-cloudy 08/14/172199 Urine pH 7.0 pH 08/14/172199 Urine Specific Wellman 1.017 08/14/172199 Urine Protein Negative mg/dL 08/14/172199 Urine Glucose (UA) Negative mg/dL 08/14/172199 Urine Ketones 20 mg/dL H 08/14/172199 Urine Blood Negative 08/14/172199 Urine Nitrite Negative 08/14/172199 Urine Bilirubin Negative 08/14/172199 Urine Urobilinogen Negative mg/dL 08/14/172199 Urine Leukocyte Esterase Negative 08/14/172199 Urine RBC 1 /HPF 08/14/172199 Urine WBC 3 /HPF 08/14/172199 Urine Squamous Epithelial Cells None /LPF 08/14/172199 Urine Amorphous Crystals Few /HPF 08/14/172199 Urine Bacteria Negative /HPF 08/14/172199 Urine Mucus None /HPF 08/14/172199 Stool Occult Blood (IFOB) Positive H 08/16/17 1015 Imaging PATIENT NAME: Myriam Scruggs : 1930 MR: [id number] V: [id number] EXAM DATE: [id number] ORDERING PHYSICIAN: SHAWN CARRERA TECHNOLOGIST: Location: [facility] [place] Patient: Myriam Scruggs : 1930 Visit/Account:[id number] Date of Sevice: 08/14/2017 COMPUTED TOMOGRAPHY ABDOMEN AND PELVIS WITH INTRAVENOUS CONTRAST DATE OF EXAM: 08/14/2017 9:57 PM INDICATION: Periumbilical pain after dinner. History of cholecystectomy and hiatal hernia. COMPARISON: CTA abdomen and pelvis 11/10/2014. TECHNIQUE: Contrast enhanced abdomen and pelvis CT performed during the injection of 75 ml of Isovue 370. Sagittal and coronal reconstructions were performed. One of the following dose optimization techniques was utilized in the performance of this exam: Automated exposure control; adjustment of the mA and/or kV according to the patient's size; or use of an iterative reconstruction technique. Specific details can be referenced in the facility's radiology CT exam operational policy. FINDINGS: Lung bases: Mild scarring/atelectasis. Liver and hepatic vasculature: Normal. Gallbladder and bile ducts: Cholecystectomy. Spleen: Normal. Pancreas: Normal. Adrenals: Normal. Kidneys, ureters and bladder: No acute bony or suspicious lesion. Kidneys are mildly atrophic. Retroperitoneum and aorta: Nonaneurysmal aorta with mild atherosclerosis. No adenopathy. GI tract, mesentery and peritoneum: There are multiple prominent fluid filled loops of distal small bowel, as well as fluid in the proximal colon. There is likely a degree of associated wall thickening and enhancement. Small bowel loops measure up to 3.4 cm in diameter. The terminal ileum is decompressed. Small volume of free fluid the abdomen and pelvis is likely reactive. No pneumatosis or pneumoperitoneum. Normal appendix. Distal esophagus is fluid-filled. Severe sigmoid diverticulosis. Uterus and adnexa: Hysterectomy. Bones and soft tissues: No acute abnormality or suspicious lesion. Remote right rib fractures. Mild rightward curvature of the lumbar spine with moderate multilevel spondylosis. IMPRESSION: 1. Suspected infectious or inflammatory enterocolitis with associated reactive free fluid. Some of the small bowel loops measuring up to 3.4 cm in diameter, and a degree of ileus or obstruction is not excluded. 2. Fluid in the distal esophagus may indicate reflux or dysmotility. Dr. Wilkinson discussed this case with SHAWN CARRERA on 08/14/2017 11:39 PM. Report Dictated By: Alvaro Wilkinson MD at 08/14/2017 11:25 PM Report E-Signed By: Alvaro Wilkinson MD at 08/14/2017 11:39 PM WSN:[id number] PATIENT NAME: Myriam Scruggs : 1930 MR: [id number] V: [id number] EXAM DATE: ORDERING PHYSICIAN: AARON BROWN TECHNOLOGIST: Location: [facility] [place] Patient: Myriam Scruggs : 1930 Visit/Account:[id number] Date of Sevice: 08/15/2017 KUB SINGLE VIEW ABDOMEN COMPARISONS: None. ADDITIONAL PERTINENT HISTORY: Obstruction FINDINGS: Lung bases: Negative. Supine evidence of free air: None. Bowel gas pattern: Increased stool noted within the rectosigmoid colon. No dilated loops of bowel to suggest obstruction at this time. Surrounding soft tissues and solid organs: Negative. Osseous structures: Mild scoliotic curvature convex to the right centered at T12 -L1. Spondylitic change involving the lower lumbar spine. IMPRESSION: 1. Findings of underlying constipation. 2. No other abnormality noted. Specifically no findings to suggest obstruction at this time. Report Dictated By: aCrlos Perez MD at 08/15/2017 6:17 AM Report E-Signed By: Carlos Perez MD at 08/15/2017 6:18 AM WSN:[id number] EKG PATIENT NAME: MYRIAM SCRUGGS : [id number] MR: [id number] V: [id number] EXAM DATE: ORDERING PHYSICIAN: SHAWN CARRERA TECHNOLOGIST: STEVEN Test Reason : CARIDAC Blood Pressure : / mmHG Vent. Rate : 074 BPM Atrial Rate : 074 BPM P-R Int : 148 ms QRS Dur : 086 ms QT Int : 362 ms P-R-T Axes : 051 027 047 degrees QTc Int : 401 ms Normal sinus rhythm Normal ECG When compared with ECG of 04-JUN-2017 17:33, T wave amplitude has increased in Lateral leads Confirmed by AARON BROWN ([id number]) on 08/15/2017 7:09:18 AM Referred By: Confirmed By:AARON BROWN Condition: Improved Discharge: Home Follow-Up Labs: Other (CBC with Dr. Yepez in approximately one week.) Time Spent: > 30 min Discharge Instructions Home Meds Active Scripts Docusate Sodium (DOCUSATE SODIUM) 100 Mg Capsule, 100 MG PO BID, #60 CAPSULE 1 Refill Prov:ALANNA MORIN MD 08/18/17 Polysaccharide Iron Complex (POLY-IRON) 150 Mg Cap, 150 MG PO BIDBS, #60 CAP 1 Refill Prov:ALANNA MORIN MD 08/18/17 Pantoprazole Sodium (PANTOPRAZOLE SODIUM) 40 Mg Tablet.dr, 40 MG PO QDAY for 30 Days, #30 TAB 1 Refill Prov:ALANNA MORIN MD 08/18/17 Polyethylene Glycol 3350 (POLYETHYLENE GLYCOL 3350) 17 Gm Powd.pack, 17 GM PO QHS for 30 Days, #30 PACKET 1 Refill Mix with 8 ounces of water or juice Prov:ALANNA MORIN MD 08/18/17 Reported Medications Meclizine Hcl (MECLIZINE HCL) 12.5 Mg Tablet, 12.5 MG PO PRN 06/04/17 Metoprolol Tartrate (METOPROLOL TARTRATE) 25 Mg Tablet, 1 TAB PO BID, TAB 10/03/14 Lisinopril (LISINOPRIL) 5 Mg Tablet, 5 MG PO QDAY, TAB 10/03/14 Discontinued Reported Medications Furosemide (FUROSEMIDE) 20 Mg Tablet, 10 MG PO DAILY Y for DISCOMFORT, TAB pt stated MD told her to take as needed for swelling in the legs 10/03/14 Aspirin (ASPIRIN) 81 Mg Tab.chew, 81 MG PO QDAY, TAB.CHEW TAKE 1 TABLET BY MOUTH EVERY DAY 10/03/14 Fesoterodine Fumarate (TOVIAZ) 8 Mg Tabsr, 8 MG PO QHS 05/30/13 Rosuvastatin Calcium (Rosuvastatin Calcium) Unknown Strength Tablet 08/15/17 Polyethylene Glycol 3350 (MIRALAX) 17 Gm Powd.pack, 17 GM PO, PKT 08/14/17 Discontinued Scripts Tramadol Hcl (TRAMADOL HCL) 50 Mg Tablet, 50 MG PO Q4-6H Y for PAIN, #6 TAB Prov:IFDE LINARES GAS SPECIALIST 06/04/17 Nitrofurantoin Monohyd/M-Cryst (MACROBID 100 MG CAPSULE) 100 Mg Capsule, 100 MG PO BID, #12 CAPSULE Prov:FIDE LINARES GAS SPECIALIST 06/04/17 Follow up Referrals: Family Practice @ [facility] with Judd Yepez Do Hematology and Oncology @ [place] with Vaughn Lovelace Md Diet: Regular Activity: As Tolerated, No Exertion Special Instructions: Follow up with Dr. Yepez in approximately one week. Follow up with Dr. Tarun Spears in 2-4 weeks. Copies to: VAUGHN LOVELACE MD; JUDD YEPEZ DO Venous Thromboembolism Antithrombotics Is Pt On Any Antithrombotics?: No Problem Qualifiers (1) Abdominal pain: Abdominal location: periumbilical Qualified Codes: R10.33 - Periumbilical pain ALANNA MORIN MD Aug 18, 2017 09:22
[2017-08-18] MEDS: METOPROLOL TART 50 MG TAB PO SCH (09:42)
[2017-08-18] MEDS: PANTOPRAZOLE SOD 40 MG TABEC PO SCH (09:42)
[2017-08-18] MEDS: DOCUSATE SODIUM 100 MG CAP PO SCH (09:42)
== END 2017-08-18 11:40 | disposition home or self-care (01) | DRG 392 ==
LOC: ER 21:21 → UNDOADMOB 08-15 00:37 → MED 08-15 00:37 → OBSVTOIN 08-17 → INTOOBSV 08-17
PROVIDERS: ADMIT Family Medicine; ATTEND Family Medicine
PROC: 0DJ08ZZ Inspection of Upper Intestinal Tract, Via Natural or Artificial Opening Endoscopic (ICD-10-PCS; principal; 2017-08-17 12:40)
PROC: 0DJD8ZZ Inspection of Lower Intestinal Tract, Via Natural or Artificial Opening Endoscopic (ICD-10-PCS; 2017-08-17 12:40)
DX: K57.30 Diverticulosis of large intestine without perforation or abscess without bleeding (principal); K44.9 Diaphragmatic hernia without obstruction or gangrene; D47.2 Monoclonal gammopathy; I10 Essential (primary) hypertension; K20.9 Esophagitis, unspecified; D50.9 Iron deficiency anemia, unspecified; H81.10 Benign paroxysmal vertigo, unspecified ear; K52.9 Noninfective gastroenteritis and colitis, unspecified; K59.00 Constipation, unspecified; Z88.7 Allergy status to serum and vaccine; Z90.710 Acquired absence of both cervix and uterus; Z90.49 Acquired absence of other specified parts of digestive tract; Z85.828 Personal history of other malignant neoplasm of skin
CPT/HCPCS: 36415; 74018; 74177; 81001; 82040; 82247; 82274; 82310; 82374; 82435; 82565; 82607; 82728; 82746; 82947; 83540; 83550; 83605; 83690; 84075; 84132; 84155; 84295; 84450; 84460; 84520; 85014; 85018; 85025; 85045; 93005; 96361; 96374; 99285; A4353; G0378; J2704; J3010; J7030; Q9967

== ENCOUNTER → 2017-08-14 | Outpatient (CLI) | payer MEDICARE, OTHER ==
[~2017-08-14] MED LIST changes: +DOCU-202 PO; +IRO150 PO; +MECL12.5 PO; +NITR-105 PO; +PANT40TA65 PO; +POLY17PO21 PO; +POLY17PO25 PO; +ROSU5TAB18; +TRAM-420 PO
[2017-08-28 08:27] VITALS: BMI 26.4
== END ==
LOC: AMB 20:51
PROVIDERS: ATTEND Nurse Practitioner
DX: R10.84 Generalized abdominal pain (principal); K59.00 Constipation, unspecified
CPT/HCPCS: A0425; A0427

== ENCOUNTER 2017-08-27 22:13 | Inpatient (IN) | payer MEDICARE, OTHER ==
[~2017-08-27] VITALS: Ht 160 cm; Wt 67.6 kg
[~2017-08-27 22:13] MED LIST changes: -ACET-2043 PO; -ASPI-757 PO
--- NOTE | 2017-08-27 22:20 | ER Report ---
History and Physical Time Seen By MD: 22:19 HPI/ROS CHIEF COMPLAINT: Fall, right hip pain HISTORY OF PRESENT ILLNESS: 87-year-old female fell at home, brought in by EMS from home in a pelvic binder. She has external rotation and shortening of her right lower extremity. She is complaining of severe pelvic pain. She received fentanyl 100 g by EMS prior to arrival. The right lower extremities noted to be neurovascularly intact. Patient denies head impact, neck pain, chest pain, shortness of breath. View of the patient's records reveal recent admission with discharge and 08/18/17. She was admitted with enteritis. She is also noted to be anemic. She's been consult a by oncology and is noted to have chronic anemia thought to be iron deficiency instead of blood loss. Patient also planes of right rib pain during impact on her fall. REVIEW OF SYSTEMS: Respiratory: No cough, no dyspnea. Cardiovascular: No chest pain, no palpitations. Gastrointestinal: No vomiting, no abdominal pain. Musculoskeletal: As above Allergies: Coded Allergies: Tetanus Vaccines and Toxoid (Verified Allergy, Intermediate, 12/17/14) Home Meds Active Scripts Docusate Sodium (DOCUSATE SODIUM) 100 Mg Capsule, 100 MG PO BID, #60 CAPSULE 1 Refill Prov:ALANNA MORIN MD 08/18/17 Polysaccharide Iron Complex (POLY-IRON) 150 Mg Cap, 150 MG PO BIDBS, #60 CAP 1 Refill Prov:ALANNA MORIN MD 08/18/17 Pantoprazole Sodium (PANTOPRAZOLE SODIUM) 40 Mg Tablet.dr, 40 MG PO QDAY for 30 Days, #30 TAB 1 Refill Prov:ALANNA MORIN MD 08/18/17 Polyethylene Glycol 3350 (POLYETHYLENE GLYCOL 3350) 17 Gm Powd.pack, 17 GM PO QHS for 30 Days, #30 PACKET 1 Refill Mix with 8 ounces of water or juice Prov:ALANNA MORIN MD 08/18/17 Reported Medications Meclizine Hcl (MECLIZINE HCL) 12.5 Mg Tablet, 12.5 MG PO PRN 06/04/17 Metoprolol Tartrate (METOPROLOL TARTRATE) 25 Mg Tablet, 1 TAB PO BID, TAB 10/03/14 Lisinopril (LISINOPRIL) 5 Mg Tablet, 5 MG PO QDAY, TAB 10/03/14 Past Medical/Surgical History Past medical history: Essential hypertension, benign positional vertigo, hyperlipidemia, Past surgical history: cholecystectomy Reviewed Nurses Notes: Yes Old Medical Records Reviewed: Yes Hx Smoking: No Smoking Status: Never Smoker Hx Substance Use Disorder: No Hx Alcohol Use: Yes (rare) Constitutional Vital Sign - Last 24 Hours 08/27/17 08/27/17 08/27/17 08/27/17 22:13 22:17 22:17 22:28 Temp 98.7 Pulse 76 72 Resp 20 B/P (MAP) 186/72 (110) 186/72 Pulse Ox 100 98 O2 Delivery Room Air O2 Flow Rate 3.0 08/27/17 08/27/17 08/27/17 08/27/17 22:43 22:58 23:13 23:28 Pulse 73 69 73 71 Pulse Ox 99 97 97 100 08/27/17 08/27/17 08/27/17 08/28/17 23:38 23:43 23:58 00:00 Pulse 72 71 B/P (MAP) 198/86 (123) 200/72 (114) Pulse Ox 95 99 Physical Exam Vital signs stable, afebrile, pulse ox normal., Palpation of the head and neck reveal no tenderness or trauma. General Appearance: The patient is alert, has no immediate need for airway protection and no current signs of toxicity. Alert and oriented 3 HEENT: Pupils equal and round no injection. Heart of hearing, TMs normal, oropharynx without dental trauma, mucous members are moist Respiratory: Chest is non tender, lungs are clear to auscultation. There is tenderness to the right chest wall. There is no bruising garcia or crepitus noted. Cardiac: regular rate and rhythm Gastrointestinal: Abdomen is soft and non tender, no masses, bowel sounds normal. Musculoskeletal: Neck: Neck is supple and non tender. Palpation of the right side of the pelvis reveals extreme tenderness on palpation over the trochanteric area. Extremities have full range of motion and are non tender. External rotation and shortening of right lower extremity noted. There are intact pulses. Skin: No rashes or lesions. DIFFERENTIAL DIAGNOSIS: After history and physical exam differential diagnosis was considered for fall in the elderly including but not limited to intracranial injury, long bone and pelvic bone fracture, spinal injury, and intrathoracic injury. Medical Decision Making Data Points Result Diagram: 08/27/17220908/27/170 Laboratory Hematology Test 08/27/17 22:10 08/27/17 23:45 Red Blood Count 3.30 M/uL (4.17-5.56) Mean Corpuscular Volume 79.0 fL (80.0-96.0) Mean Corpuscular Hemoglobin 25.2 pg (26.0-33.0) Mean Corpuscular Hemoglobin Concent 32.0 g/dL (32.0-36.0) Red Cell Distribution Width 15.7 % (11.5-14.5) Mean Platelet Volume 10.4 fL (7.2-11.1) Neutrophils (%) (Auto) 65.4 % (39.4-72.5) Lymphocytes (%) (Auto) 15.4 % (17.6-49.6) Monocytes (%) (Auto) 15.7 % (4.1-12.4) Eosinophils (%) (Auto) 2.6 % (0.4-6.7) Basophils (%) (Auto) 0.9 % (0.3-1.4) Nucleated RBC Relative Count (auto) 0.0 /100WBC Neutrophils # (Auto) 6.8 K/uL (2.0-7.4) Lymphocytes # (Auto) 1.6 K/uL (1.3-3.6) Monocytes # (Auto) 1.6 K/uL (0.3-1.0) Eosinophils # (Auto) 0.3 K/uL (0.0-0.5) Basophils # (Auto) 0.1 K/uL (0.0-0.1) Nucleated RBC Absolute Count (auto) 0.00 K/uL Prothrombin Time 14.8 seconds (12.0-14.4) Prothromb Time International Ratio 1.15 Activated Partial Thromboplast Time 26 seconds (23-35) Sodium Level 136 mmol/L (137-145) Potassium Level 4.6 mmol/L (3.5-5.0) Chloride Level 100 mmol/L (98-107) Carbon Dioxide Level 27 mmol/L (22-31) Blood Urea Nitrogen 26 mg/dl (7-18) Creatinine 0.80 mg/dl (0.52-1.04) Glomerular Filtration Rate Calc > 60.0 Random Glucose 130 mg/dl (75-110) Calcium Level 9.1 mg/dl (8.4-10.2) Total Bilirubin 0.1 mg/dl (0.2-1.3) Aspartate Amino Transf (AST/SGOT) 23 U/L (0-35) Alanine Aminotransferase (ALT/SGPT) 21 U/L (0-56) Alkaline Phosphatase 109 U/L (0-126) Troponin I < 0.012 ng/ml Total Protein 6.0 gm/dl (6.3-8.2) Albumin 3.2 g/dl (3.5-5.0) Urine Color Straw Urine Clarity Clear Urine pH 7.0 pH (4.8-9.5) Urine Specific [place] 1.010 Urine Protein Negative mg/dL (NEGATIVE) Urine Glucose (UA) Negative mg/dL (NEGATIVE) Urine Ketones Negative mg/dL (NEGATIVE) Urine Blood Negative (NEGATIVE) Urine Nitrite Negative (NEGATIVE) Urine Bilirubin Negative (NEGATIVE) Urine Urobilinogen Negative mg/dL (0.2-1.9) Urine Leukocyte Esterase Negative (NEGATIVE) Urine RBC <1 /HPF (0-2/HPF) Urine WBC 1 /HPF (0-5/HPF) Urine Squamous Epithelial Cells Few /LPF (NONE-FEW) Urine Bacteria Negative /HPF (NONE-FEW) Urine Mucus None /HPF (NONE-FEW) Chemistry Test 08/27/17 22:10 08/27/17 23:45 White Blood Count 10.4 k/uL (4.5-11.0) Red Blood Count 3.30 M/uL (4.17-5.56) Hemoglobin 8.3 g/dL (12.0-16.0) Hematocrit 26.0 % (34.0-47.0) Mean Corpuscular Volume 79.0 fL (80.0-96.0) Mean Corpuscular Hemoglobin 25.2 pg (26.0-33.0) Mean Corpuscular Hemoglobin Concent 32.0 g/dL (32.0-36.0) Red Cell Distribution Width 15.7 % (11.5-14.5) Platelet Count 280 K/uL (150-450) Mean Platelet Volume 10.4 fL (7.2-11.1) Neutrophils (%) (Auto) 65.4 % (39.4-72.5) Lymphocytes (%) (Auto) 15.4 % (17.6-49.6) Monocytes (%) (Auto) 15.7 % (4.1-12.4) Eosinophils (%) (Auto) 2.6 % (0.4-6.7) Basophils (%) (Auto) 0.9 % (0.3-1.4) Nucleated RBC Relative Count (auto) 0.0 /100WBC Neutrophils # (Auto) 6.8 K/uL (2.0-7.4) Lymphocytes # (Auto) 1.6 K/uL (1.3-3.6) Monocytes # (Auto) 1.6 K/uL (0.3-1.0) Eosinophils # (Auto) 0.3 K/uL (0.0-0.5) Basophils # (Auto) 0.1 K/uL (0.0-0.1) Nucleated RBC Absolute Count (auto) 0.00 K/uL Prothrombin Time 14.8 seconds (12.0-14.4) Prothromb Time International Ratio 1.15 Activated Partial Thromboplast Time 26 seconds (23-35) Glomerular Filtration Rate Calc > 60.0 Calcium Level 9.1 mg/dl (8.4-10.2) Total Bilirubin 0.1 mg/dl (0.2-1.3) Aspartate Amino Transf (AST/SGOT) 23 U/L (0-35) Alanine Aminotransferase (ALT/SGPT) 21 U/L (0-56) Alkaline Phosphatase 109 U/L (0-126) Troponin I < 0.012 ng/ml Total Protein 6.0 gm/dl (6.3-8.2) Albumin 3.2 g/dl (3.5-5.0) Urine Color Straw Urine Clarity Clear Urine pH 7.0 pH (4.8-9.5) Urine Specific [place] 1.010 Urine Protein Negative mg/dL (NEGATIVE) Urine Glucose (UA) Negative mg/dL (NEGATIVE) Urine Ketones Negative mg/dL (NEGATIVE) Urine Blood Negative (NEGATIVE) Urine Nitrite Negative (NEGATIVE) Urine Bilirubin Negative (NEGATIVE) Urine Urobilinogen Negative mg/dL (0.2-1.9) Urine Leukocyte Esterase Negative (NEGATIVE) Urine RBC <1 /HPF (0-2/HPF) Urine WBC 1 /HPF (0-5/HPF) Urine Squamous Epithelial Cells Few /LPF (NONE-FEW) Urine Bacteria Negative /HPF (NONE-FEW) Urine Mucus None /HPF (NONE-FEW) Coagulation Test 08/27/17 22:10 Prothrombin Time 14.8 seconds Prothromb Time International Ratio 1.15 Activated Partial Thromboplast Time 26 seconds Urinalysis Test 08/27/17 23:45 Urine Color Straw Urine Clarity Clear Urine pH 7.0 pH (4.8-9.5) Urine Specific [place] 1.010 Urine Protein Negative mg/dL (NEGATIVE) Urine Glucose (UA) Negative mg/dL (NEGATIVE) Urine Ketones Negative mg/dL (NEGATIVE) Urine Blood Negative (NEGATIVE) Urine Nitrite Negative (NEGATIVE) Urine Bilirubin Negative (NEGATIVE) Urine Urobilinogen Negative mg/dL (0.2-1.9) Urine Leukocyte Esterase Negative (NEGATIVE) Urine RBC <1 /HPF (0-2/HPF) Urine WBC 1 /HPF (0-5/HPF) Urine Squamous Epithelial Cells Few /LPF (NONE-FEW) Urine Bacteria Negative /HPF (NONE-FEW) Urine Mucus None /HPF (NONE-FEW) EKG/Imaging EKG Interpretation 12 lead EK Rhythm: normal sinus rhythm [place]: normal QRS: normal,? Old anterior Q waves ST segments: normal, comparison to previous EKG dated 08/27/17, no significant change noted Imaging X-ray: Single view portable chest x-ray was obtained. I viewed the images myself on the PACS system. My interpretation of the images is: No fractured ribs, no pneumothorax, no infiltrate, no effusion, normal mediastinum., Comparison to previous chest x-ray dated 12/08/16. The radiologist interpretation had no clinically significant variation from this interpretation. X-ray: Right hip 3 views was obtained. I viewed the images myself on the PACS system. My interpretation of the images is: There is an impacted intertrochanteric right hip fracture with some comminuted fragments noted. There is mild angulation noted as well.. The radiologist interpretation had no clinically significant variation from this interpretation. ED Course/Re-evaluation Clinical Indication for ER IV: Hydration, IV Access ED Course Patient was admitted to an examination room. H&P was done. The differential diagnosis was considered. On clinical examination. Patient has tenderness to her left hip after a fall. She also has some right rib tenderness. Diagnostic evaluation show an intertrochanteric fracture of the right hip. The right lower extremity is neurovascularly intact. Chest x-ray shows no fracture, ribs or pneumothorax. Patient's medicated with morphine 4 mg IV. Diagnostic studies show a low H&H, but at baseline, considering her last admission. She will likely need transfusion PRBCs prior to surgery. Her case is discussed with orthopedics on-call, and the hospitalist on-call. 08/27/2017 11:11:27 pm case discussed with Dr. Noriega orthopedic surgery, who agrees to admit will perform to surgery at the patient is medical cleared and her anemia corrected. 08/27/2017 11:27:41 pm case discussed with Dr. Sree Cason hospitalist on- call. For admission for medical management of her hip fracture. Decision to Disposition Date: Aug 27, 2017 Decision to Disposition Time: 23:12 Depart Departure Latest Vital Signs Vital Signs Date Time Temp Pulse Resp B/P (MAP) Pulse Ox O2 Delivery O2 Flow Rate FiO2 08/28/17 00:00 200/72 (114) 08/27/17 23:58 71 99 08/27/17 22:17 98.7 20 Room Air 08/27/17 22:13 3.0 Impression: Primary Impression: Fracture of right hip Additional Impressions: Anemia Essential hypertension Condition: Improved Disposition: Admitted from ER Problem Qualifiers Primary Impression: Fracture of right hip Encounter type: initial encounter Fracture type: closed Qualified Codes: S72.001A - Fracture of unspecified part of neck of right femur, initial encounter for closed fracture Additional Impressions: Anemia Anemia type: iron deficiency Iron deficiency anemia type: unspecified iron deficiency Qualified Codes: D50.9 - Iron deficiency anemia, unspecified SUSSY CHAMBERLAIN DO Aug 27, 2017 22:20
--- NOTE | 2017-08-27 22:37 | EKG ---
FACILITY: [facility] - [place] PATIENT NAME: BELA STEWART : [id number] MR: [id number] V: [id number] EXAM DATE: ORDERING PHYSICIAN: SUSSY CHAMBERLAIN TECHNOLOGIST: Brent Nicole Reason : Blood Pressure : / mmHG Vent. Rate : 070 BPM Atrial Rate : 070 BPM P-R Int : 174 ms QRS Dur : 078 ms QT Int : 370 ms P-R-T Axes : 021 049 053 degrees QTc Int : 399 ms Normal sinus rhythm Low voltage QRS Cannot rule out Anterior infarct , age undetermined No ST-T abnormalities When compared with ECG of 14-AUG-2017 21:29, No significant change was found Confirmed by JOI MOCTEZUMA ([id number]) on 08/27/2017 11:33:54 PM Referred By: Confirmed By:JOI MOCTEZUMA
[2017-08-27 22:45] LABS: PLATELET COUNT, AUTOMATED 280 K/uL (150-450)
[2017-08-27 22:49] LABS: INR 1.15
--- NOTE | 2017-08-27 23:04 | RADIOLOGY IMAGING REPORT ---
FACILITY: [facility] PATIENT NAME: Myriam Scruggs : 1930 MR: [id number] V: [id number] EXAM DATE: ORDERING PHYSICIAN: SUSSY CHAMBERLAIN TECHNOLOGIST: Location: [facility] [place] Patient: Myriam Scruggs : 1930 Visit/Account:[id number] Date of Sevice: 08/27/2017 HIP RIGHT History: Preoperative, right hip pain. COMPARISON: 08/25/2017. FINDINGS: 2 views are provided. There is a mildly displaced intertrochanteric fracture of the right h ip with lateral apex angulation. No dislocation. Pelvic ring appears intact. Advanced degenerative ch anges noted in the lower lumbar spine. Soft tissues are grossly negative. IMPRESSION: Intertrochanteric fracture of the right hip. Report Dictated By: Joey Arango MD at 08/27/2017 10:59 PM Report E-Signed By: Joey Arango MD at 08/27/2017 11:00 PM WSN:[id number]
--- NOTE | 2017-08-27 23:04 | RADIOLOGY IMAGING REPORT ---
FACILITY: [facility] - [place], [place] PATIENT NAME: Myriam Scruggs : 1930 MR: [id number] V: [id number] EXAM DATE: ORDERING PHYSICIAN: SUSSY CHAMBERLAIN TECHNOLOGIST: Location: [facility] Patient: Myriam Scruggs : 1930 Visit/Account:[id number] Date of Sevice: 08/27/2017 CHEST SINGLE AP History: Preoperative Comparison 12/08/2016. FINDINGS: Heart size upper limits of normal allowing for suboptimal inspiration. No consolidation, effusion or pneumothorax. IMPRESSION: No evidence of acute cardiopulmonary disease. Report Dictated By: Joey Arango MD at 08/27/2017 10:57 PM Report E-Signed By: Joey Arango MD at 08/27/2017 10:59 PM WSN:[id number]
[2017-08-27] MEDS ORDERED: ONDANSETRON 4 MG/2 ML VIAL IVP ONE (23:25)
[2017-08-27] MEDS ORDERED: MORPHINE 4 MG/ML SDV IVP ONE (23:25)
[2017-08-28] VITALS (17 sets, daily range): BP systolic 126–197; BP diastolic 51–119; Ht 160 cm; Wt 67.6 kg
[2017-08-28] MEDS ORDERED: MORPHINE 2 MG/ML SYR IVP PRN (00:20)
[2017-08-28] MEDS ORDERED: ONDANSETRON 4 MG/2 ML VIAL IVP PRN (00:20)
[2017-08-28] MEDS ORDERED: MECLIZINE HCL 12.5 MG TAB PO PRN (00:20)
[2017-08-28] MEDS ORDERED: PROMETHAZINE 25 MG/ML 1 ML AMP IVP PRN (00:20)
[2017-08-28] MEDS ORDERED: cloNIDine HCL 0.1 MG TAB PO PRN (00:25)
--- NOTE | 2017-08-28 00:50 | History & Physical ---
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 She was in her normal state of health tonight. She turned to walk and became very vertiginous and then fell to the ground. She gets spells of vertigo regularly and knows not to turn her head to fast. She does report that she has falls every once in a while related to the vertigo. She denies any cp/ sob/LOC before or after the fall. She denies orthopnea/PND/constipation. She denies CAD, COPD, CHF, h/o DVT/PE or problems with anesthesia. She does have some mild LE edema but it is chronic. She was discharged from [facility] 10 days ago after a 3 day stay. She came in with abdominal pain was found to have constipation, distal esophagitis and iron deficiency anemia. She has done well since discharge. History Problems: (1) Esophagitis Status: Chronic (2) Positional vertigo Status: Chronic (3) Essential hypertension Status: Chronic (4) Monoclonal gammopathy Status: Chronic (5) History of cholecystectomy Status: Chronic Home Meds Active Scripts Docusate Sodium (DOCUSATE SODIUM) 100 Mg Capsule, 100 MG PO BID, #60 CAPSULE 1 Refill Prov:ALANNA MORIN MD 08/18/17 Polysaccharide Iron Complex (POLY-IRON) 150 Mg Cap, 150 MG PO BIDBS, #60 CAP 1 Refill Prov:ALANNA MORIN MD 08/18/17 Pantoprazole Sodium (PANTOPRAZOLE SODIUM) 40 Mg Tablet.dr, 40 MG PO QDAY for 30 Days, #30 TAB 1 Refill Prov:ALANNA MORIN MD 08/18/17 Polyethylene Glycol 3350 (POLYETHYLENE GLYCOL 3350) 17 Gm Powd.pack, 17 GM PO QHS for 30 Days, #30 PACKET 1 Refill Mix with 8 ounces of water or juice Prov:ALANNA MORIN MD 08/18/17 Reported Medications Meclizine Hcl (MECLIZINE HCL) 12.5 Mg Tablet, 12.5 MG PO PRN 06/04/17 Metoprolol Tartrate (METOPROLOL TARTRATE) 25 Mg Tablet, 1 TAB PO BID, TAB 10/03/14 Lisinopril (LISINOPRIL) 5 Mg Tablet, 5 MG PO QDAY, TAB 10/03/14 Allergies: Coded Allergies: Tetanus Vaccines and Toxoid (Verified Allergy, Intermediate, 12/17/14) Patient History: FH: CHF (congestive heart failure) MOTHER, , Age:95 FH: breast cancer CHILD, Age:63, Onset:50's - 60 FH: diabetes mellitus FATHER, , Age:60 years and older Other Social/Family Hx Lives with her . Rare alcohol use. Hx Smoking: No Smoking Status: Never Smoker Caffeine Intake: Coffee Caffeine/Cups Per Day: 2 Hx Alcohol Use: Yes (rare) Hx Substance Use Disorder: No Review of Systems All Systems Reviewed/Normal: Yes, Except as Noted Exam Vital Signs Vital Signs Date Time Temp Pulse Resp B/P (MAP) Pulse Ox O2 Delivery O2 Flow Rate FiO2 08/27/17 22:17 98.7 76 20 186/72 100 Room Air General Appearance: Alert, Awake, No Acute Distress Neuro: No Gross deficits (Knows where she is, recent events, why she is here) Cardiovascular: Regular Rate and Rhythm Respiratory: Clear to Auscultation GI: Abd Soft and Non-Tender Musculoskeletal: Other (right leg is externally rotated and shorter than the left) Extremities: Edema (1+ pitting above socks) Integumentary: No Jaundice, No Cyanosis Medical Decision Making Data Points Result Diagram: 08/27/17220908/27/172209 Item Value Date Time Urine RBC <1 /HPF 08/27/17 2345 Urine WBC 1 /HPF 08/27/17 2345 Urine Squamous Epithelial Cells Few /LPF 08/27/17 2345 Urine Bacteria Negative /HPF 08/27/17 2345 Urine Leukocyte Esterase Negative 08/27/17 2345 Urine Nitrite Negative 08/27/17 2345 Hemoglobin 8.3 g/dL *L 08/27/17 2210 Hemoglobin 8.1 g/dL *L 08/18/17 0514 Hemoglobin 8.1 g/dL *L 08/17/17 0532 White Blood Count 10.4 k/uL 08/27/172209 Neutrophils (%) (Auto) 65.4 % 08/27/172209 Mean Corpuscular Volume 79.0 fL L 08/27/172209 Platelet Count 280 K/uL 08/27/170 Prothromb Time International Ratio 1.15 4/15/18 2210 Creatinine 0.80 mg/dl 08/27/17 2210 Blood Urea Nitrogen 26 mg/dl H 08/27/17 2210 Blood Urea Nitrogen 12 mg/dl 08/18/17 0514 Creatinine 0.70 mg/dl 08/18/17 0514 Troponin I < 0.012 ng/ml 08/27/17 2210 EKG / Imaging EKG Interpretation Vent. Rate : 070 BPM Atrial Rate : 070 BPM P-R Int : 174 ms QRS Dur : 078 ms QT Int : 370 ms P-R-T Axes : 021 049 053 degrees QTc Int : 399 ms Normal sinus rhythm Low voltage QRS Cannot rule out Anterior infarct , age undetermined No ST-T abnormalities When compared with ECG of 14-AUG-2017 21:29, No significant change was found Confirmed by JOI MOCTEZUMA ([id number]) on 08/27/2017 11:33:54 PM Imaging CXR - No evidence of acute cardiopulmonary disease. Hip XRay - Intertrochanteric fracture of the right hip. Assessment and Plan Problems: (1) Pre-op evaluation Status: Acute Assessment & Plan: She has a low-moderate risk of cardiac complications based her age and hypertension. She has no worrisome symptoms, but CXR appears to have a large RV and cardiomegaly. ECG is wnl. Will have her get an echo before surgery to evaluate for pulmonary hypertension or structural abnormalities. She has low risk for pulmonary complications. She has moderate risk for post operative delirium because of her age. She has a low risk for bleeding complications. (2) Fracture of right hip Status: Acute Assessment & Plan: Secondary to fall that was precipitated by her chronic vertigo. Ortho to see. (3) Anemia Status: Chronic Assessment & Plan: She has an iron deficiency anemia that was worked up with labs and EGD about 10 days ago. She was found to have a distal esophagitis and is on Protonix. This is complicated by MGUS. Her Hgb is stable from 10 days ago and has no evidence of bleeding. Will type and screen her, but not transfuse unless there is are bleeding complications intra-operatively or Hgb drops below 7. Continue oral iron and consider IV iron. (4) Essential hypertension Status: Chronic Assessment & Plan: Continue chronic metoprolol, but will hold lisinopril for now. Clonidine prn. (5) Monoclonal gammopathy Status: Chronic Assessment & Plan: Followed by Dr. Lovelace. (6) Positional vertigo Status: Chronic Copies to: AMIRA LOVELACE MD; TIARA YEPEZ DO Venous Thromboembolism Antithrombotics Is Pt On Any Antithrombotics?: No Exam Sepsis Risk: No Definite Risk Problem Qualifiers (1) Fracture of right hip: Encounter type: initial encounter Fracture type: closed Qualified Codes: S72.001A - Fracture of unspecified part of neck of right femur, initial encounter for closed fracture (2) Anemia: Anemia type: iron deficiency Iron deficiency anemia type: unspecified iron deficiency Qualified Codes: D50.9 - Iron deficiency anemia, unspecified JOI MOCTEZUMA MD Aug 28, 2017 00:50
[2017-08-28] MEDS: MORPHINE 2 MG/ML SYR IVP PRN ×4 (04:16→15:51)
[2017-08-28] MEDS ORDERED: KCL 2 MEQ/ML 20 MEQ/10 ML VIAL 20 MEQ in D5 1/2 NS(*) 1000 ML BAG 1,000 ML IV PRN (06:15)
[2017-08-28] MEDS: PANTOPRAZOLE SOD 40 MG TABEC PO SCH (06:21)
[2017-08-28] MEDS ORDERED: KCL/D1/2NS 20 MEQ 1000 ML 1,000 ML IV SCH (06:25)
[2017-08-28] MEDS ORDERED: METOPROLOL TART 50 MG TAB PO SCH (09:00)
[2017-08-28] MEDS: DOCUSATE SODIUM 100 MG CAP PO SCH ×2 (09:26→21:46)
[2017-08-28] MEDS: METOPROLOL TART 50 MG TAB PO SCH ×2 (09:26→21:47)
[2017-08-28] MEDS: POLYSACCHARIDE IRON COM 150 MG PO SCH ×2 (09:26→17:00)
--- NOTE | 2017-08-28 09:47 | Miscellaneous Provider Note ---
Miscellaneous Provider Note Note The patient is in a great deal of pain and unable to tolerate an echo prior to the surgical procedure. She does not have evidence of failure on her CXR and her EKG is unchanged. She is lying flat in bed without shortness of breath. Recommend proceeding with surgery. Will get echo tomorrow. YARI MORIN MD Aug 28, 2017 09:47
[2017-08-28] MEDS ORDERED: INFLUENZA VIRUS VAC 0.5 ML SYR IM ONLY ONE (10:00)
[2017-08-28] MEDS ORDERED: DIAZEPAM 50 MG/10 ML MDV IVP PRN (10:20)
[2017-08-28] MEDS ORDERED: NS(*) 0.9% 500 ML BAG 500 ML ONE (12:33)
[2017-08-28] MEDS ORDERED: DEXAMETHASONE SOD 4 MG/ML VIAL ONE (13:56)
[2017-08-28] MEDS ORDERED: LIDOCAINE MPF 1% 5 ML VIAL ONE (13:56)
[2017-08-28] MEDS ORDERED: ONDANSETRON 4 MG/2 ML VIAL ONE (13:56)
[2017-08-28] MEDS ORDERED: PROPOFOL EMUL(*) 10MG/ML 20 ML 20 ML ONE (13:56)
[2017-08-28] MEDS ORDERED: ROPIVACAINE 0.2% 20 ML VIAL ONE ×2 (13:56→18:16)
[2017-08-28] MEDS ORDERED: fentaNYL CITR 100 MCG/2 ML AMP ONE (14:32)
--- NOTE | 2017-08-28 14:53 | Miscellaneous Provider Note ---
Miscellaneous Provider Note Note Per facility maintenance technician report the patient's EF is estimated to be 70%. She does have pulmonary hypertension with RVSP of 67 mmHg. She had grade 1-2/4 diastolic dysfunction. There was noted to be mild RV enlargement. YARI MORIN MD Aug 28, 2017 14:53
[2017-08-28] MEDS ORDERED: NORMOSOL R SOLN(*) 1000 ML BAG 1,000 ML IV ONE (16:53)
[2017-08-28] MEDS ORDERED: ceFAZolin 1 GM VIAL ONE (18:46)
--- NOTE | 2017-08-28 19:02 | RADIOLOGY IMAGING REPORT ---
FACILITY: [facility] PATIENT NAME: Myriam Scruggs : 1930 MR: [id number] V: [id number] EXAM DATE: ORDERING PHYSICIAN: CRISTOPHER GONZALEZ TECHNOLOGIST: Location: [facility] - [place] Patient: Myriam Scruggs : 1930 Visit/Account:[id number] Date of Sevice: 08/28/2017 Technique: C-ARM FLUORO 1 HR HISTORY: RIGHT GAMMA NAILING Comparison studies: Right hip radiographs August 27, 2017 FINDINGS: 6 operative fluoroscopic images were obtained of the right hip. There is been placement of an intramedullary lori with gamma nail traversing a comminuted intertrochanteric fracture of the right hip. There is improved anatomic alignment. Fluoroscopy time: 82.1 seconds IMPRESSION: 1. Intraoperative fluoroscopic radiographs as described above. Please see operative report for furth er details. Report Dictated By: Sean Mantilla DO at 08/28/2017 6:57 PM Report E-Signed By: Sean Mantilla DO at 08/28/2017 6:58 PM WSN:[id number]
[2017-08-28] MEDS ORDERED: MAGNESIUM HYDROXIDE* 30ML UDCP PO PRN (19:50)
[2017-08-28] MEDS ORDERED: FLUSH 10 ML SYR IVP PRN (19:50)
[2017-08-28] MEDS ORDERED: KCL/D5LR 20 MEQ/1000 ML PREMIX 1,000 ML IV PRN ×2 (19:50)
[2017-08-28] MEDS ORDERED: diphenhydrAMINE 25 MG CAP PO PRN (19:50)
[2017-08-28] MEDS ORDERED: BISACODYL 10 MG SUPP PR PRN (19:50)
[2017-08-28] MEDS ORDERED: MAGNESIUM CITRATE 300 ML BTL PO PRN (19:50)
[2017-08-28] MEDS: POLYETHYLENE GLYCOL 17 GM PKT PO SCH (21:47)
[2017-08-29] VITALS (14 sets, daily range): BP systolic 107–173; BP diastolic 42–77
[2017-08-29] MEDS: ceFAZolin(*) 1 GM VIAL 1 GM in NS(*) 0.9% 100 ML ADDVANT BAG 100 ML IVPB SCH ×3 (02:31→17:09)
[2017-08-29] MEDS: MORPHINE 2 MG/ML SYR IVP PRN (04:49)
[2017-08-29] MEDS: KETOROLAC 30 MG/ML VIAL IVP PRN ×3 (05:02→22:37)
[2017-08-29] MEDS: PANTOPRAZOLE SOD 40 MG TABEC PO SCH (06:27)
[2017-08-29 06:29] LABS: PLATELET COUNT, AUTOMATED 173 K/uL (150-450)
[2017-08-29] MEDS: DOCUSATE SODIUM 100 MG CAP PO SCH ×2 (08:17→22:21)
[2017-08-29] MEDS: METOPROLOL TART 50 MG TAB PO SCH ×2 (08:17→22:21)
[2017-08-29] MEDS: POLYSACCHARIDE IRON COM 150 MG PO SCH ×2 (08:17→16:51)
--- NOTE | 2017-08-29 09:22 | RADIOLOGY IMAGING REPORT ---
FACILITY: [facility] PATIENT NAME: BELA STEWART : [id number] MR: [id number] V: [id number] EXAM DATE: ORDERING PHYSICIAN: JOI MOCTEZUMA TECHNOLOGIST: Serenity Topete EXAMINATION:TWO-DIMENSIONAL ECHOCARDIOGRAPH REASON:ENLARGED RIGHT VENTRICLE ON CHEST XRAY/PREOP 2D Measurements (normal values in centimeters) LV endLV endRV endVent.LV PostAorticLeftPercent DiastolicSystolicDiastolicSeptumWallRootAtriumShortening (3.5-5.7)(0.9-2.6)(0.6-1.1)(0.6-1.1)(2.0-3.7)(1.9-4.0)(25-35%) [id number]% STROKE VOLUME: 56ml ESTIMATED EJECTION FRACTION:70% PARASTERNAL LONG AXIS: The view is somewhat technically difficult. The patient was not able to assume the usual positions due to her medical conditions. The overall left ventricular systolic function appears to be normal. Right ventricle appears to be mildly enlarged. There is mild concentric left ventricular thickening. No evidence for any outflow tract obstruction. Color examination of the valves reveals a trace of mitral insufficiency. Color examination of the aortic valve was unremarkable. PARASTERNAL SHORT AXIS: Overall left ventricular function again appears to be normal. Aortic valve is probably trileaflet in configuration although very difficult to see in this view. Color examination of the valves was unremarkable. APICAL FOUR AND TWO CHAMBER: Overall left ventricular systolic function appears to be normal. Right ventricle is borderline enlarged. Right ventricular function appears to be normal. The TAPSE measured at 2.2. Left atrial volume is moderately increased. Right atrial volume is mildly increased at 27ml/m2. The left atrial volume is 36ml/m2. Aortic valve area & mitral valve area both measure within normal ranges at 1.9 & 1.7cm2 respectively. There is a trace of mitral insufficiency noted. Also a trace to mild amount of tricuspid insufficiency. The tricuspid regurgitation Vmax measured 3.62m/sec. SUBCOSTAL VIEW: No pericardial effusion was noted. No atrioseptal or ventriculoseptal defects were appreciated. Doppler examination of the mitral valve in diastole does reveal the A wave > E wave. IVC is mildly enlarged at 2.17cm. OVERALL IMPRESSION: 1. Normal left ventricular ejection fraction of 70% with a Grade 1 decrease in diastolic function. 2. Right ventricle mildly enlarged, left atrium is moderately enlarged, & right atrium is mildly enlarged. Left ventricle is normal in size. 3. There is concentric left ventricular thickening but no evidence for any outflow tract obstruction. 4. A mild amount of tricuspid insufficiency with estimated right ventricular systolic pressures of 62mm Hg which does include an estimated right atrial pressure of 10mm Hg indicating severe pulmonary hypertension & increased right ventricular systolic pressures. 5. No wall motion abnormalities were noted. 6. Mitral valve is borderline stenotic with a valve area of 1.7cm2. Dictated by: Nicky Bustos M.D. on 08/28/2017 at 17:10 Transcribed by: LOU on 08/29/2017 at 8:22 Approved by: Nicky Bustos M.D. on 08/29/2017 at 9:21 [facility]
--- NOTE | 2017-08-29 09:35 | Hospitalist Progress Note ---
Subjective Progress Notes Subjective She has no complaints this morning. Patient Complains of: Cardiovascular: No: Chest Pain Respiratory: No: Shortness of Breath Physical Exam Vital Signs Date Time Temp Pulse Resp B/P (MAP) Pulse Ox O2 Delivery O2 Flow Rate FiO2 08/29/17 08:16 58 110/42 (64) 08/29/17 07:51 81 08/29/17 07:18 97.7 12 Nasal Cannula 3.0 General Appearance: Alert, Awake, No Acute Distress, Afebrile Cardiovascular: Regular Rate and Rhythm Respiratory: No Respiratory Distress, Clear to Auscultation Psych: Alert & Oriented X3, Appropriate Mood & Affect Result Diagram: 08/29/17 0535 08/29/17 0535 Assessment and Plan Problems: (1) Fracture of right hip Status: Acute Assessment & Plan: Secondary to fall that was precipitated by her chronic vertigo. Ortho is following. She has echo performed prior to surgery for pre- operative evaluation. (2) Anemia Status: Chronic Assessment & Plan: She has an iron deficiency anemia that was worked up with labs and EGD about 10 days ago. She was found to have a distal esophagitis and is on Protonix. This is complicated by MGUS. Her Hgb is stable and has no evidence of bleeding. She did receive a blood transfusion 08/28. Continue oral iron. (3) Essential hypertension Status: Chronic Assessment & Plan: Continue chronic metoprolol, but will hold lisinopril for now. Clonidine prn. (4) Monoclonal gammopathy Status: Chronic Assessment & Plan: Followed by Dr. Hinojosa. (5) Positional vertigo Status: Chronic Exam Sepsis Risk: No Definite Risk Problem Qualifiers (1) Fracture of right hip: Encounter type: initial encounter Fracture type: closed Qualified Codes: S72.001A - Fracture of unspecified part of neck of right femur, initial encounter for closed fracture (2) Anemia: Anemia type: iron deficiency Iron deficiency anemia type: unspecified iron deficiency Qualified Codes: D50.9 - Iron deficiency anemia, unspecified BETH HSAHID TERRA COTTA MASON Aug 29, 2017 09:35
[2017-08-29] MEDS: ACETAMINOPHEN 500 MG TAB PO PRN (12:08)
--- NOTE | 2017-08-29 16:18 | OPERATIVE REPORT 1 ---
EVENT DATE: August 28, 2017 SURGEON: Jimmy Noriega MD ANESTHESIOLOGIST: Pieter Mendosa MD ANESTHESIA: General with sacroiliac block. PREOPERATIVE DIAGNOSIS Right intertrochanteric hip fracture. POSTOPERATIVE DIAGNOSIS Right intertrochanteric hip fracture. PROCEDURE PERFORMED Right intramedullary nailing of the right hip. ESTIMATED BLOOD LOSS Minimal. DESCRIPTION OF OPERATION The patient was brought to the operating room and placed in a supine position with the right leg in traction. The left leg was flexed, externally rotated, and abducted. Once I had it in appropriate traction position, we brought fluoroscopy in before prepping. We internally rotated and pulled some traction. At this point, I was able to almost anatomically reduce the fracture. At this point, we prepped and draped the lateral side of the hip using Prevail and placed a large curtain drape over top it. I under fluoroscopy made a small incision directly over the greater trochanter. Skin incised with a 15 blade down to subcutaneous tissue. Subcutaneous tissue was bluntly dissected down to the IT band. IT band was then sharply dissected. Once I was able to get into the greater trochanter, a small guidewire was then placed into the greater trochanter under fluoroscopy both on AP and lateral to make sure we had it in good position. Once that was in good position, we then reamed a starting hole. The bone was very soft. We had to do very little reaming just to get the reamer in appropriately. At this point, we put a short gamma nail in without any difficulty right down to the right position. On AP and lateral, I made sure that the nail was in the bone in good position. At this point, we then put the outrigger on and placed a 125 screw. Once we placed the guide in, we then made a small incision over the lateral aspect of the femur, bluntly dissected the IT band. The IT band was bluntly dissected, and then placed the guidewire all the way down. Under fluoroscopy, I was able to guide the wire into the inferior posterior aspect of the femoral head through the neck. We then placed pressure underneath the femur just to give it a little better alignment. I felt we had pretty good alignment. We then reamed and placed an 80 mm screw across the neck and then locked it down with a set screw. Under fluoroscopy, we made sure that the set screw was completely down. At this point, we checked AP and lateral. We found we did have a little bit of anterior varus to the neck, but it was in excellent position otherwise. Once it was locked, we then placed one screw distally through the outrigger in a static position due to the fact of her bone was so weak, and I felt that any compression could cause some collapse. I then locked the distal screw without any difficulty. We removed all the outriggers, took AP and lateral, found to have all the screws and the fracture in good alignment. We closed using Vicryl , kymberly, Adaptic, and 4 x 4's. The patient went to recovery with no complication. JUDITH
[2017-08-29] MEDS ORDERED: ROCURONIUM BROM 10 MG/ML 5 ML ONE (17:15)
[2017-08-29] MEDS: POLYETHYLENE GLYCOL 17 GM PKT PO SCH (22:21)
[2017-08-30] VITALS (10 sets, daily range): BP systolic 118–160; BP diastolic 40–90
[2017-08-30] MEDS: PANTOPRAZOLE SOD 40 MG TABEC PO SCH (06:00)
[2017-08-30 07:41] LABS: PLATELET COUNT, AUTOMATED 208 K/uL (150-450)
[2017-08-30] MEDS ORDERED: NALOXONE HCL 0.4 MG/ML VIAL ONE (07:48)
[2017-08-30] MEDS: POLYSACCHARIDE IRON COM 150 MG PO SCH ×2 (08:00→16:26)
[2017-08-30] MEDS ORDERED: NALOXONE HCL 0.4 MG/ML VIAL IVP ONE (08:35)
[2017-08-30] MEDS: METOPROLOL TART 50 MG TAB PO SCH ×2 (09:00→21:05)
[2017-08-30] MEDS: DOCUSATE SODIUM 100 MG CAP PO SCH ×2 (09:00→21:00)
[2017-08-30] MEDS ORDERED: oxyCODONE HCL 5 MG CAP PO PRN (09:15)
--- NOTE | 2017-08-30 14:01 | Hospitalist Progress Note ---
Subjective Progress Notes Subjective She is minimally responsive this morning. She was able to state her name. Physical Exam Vital Signs Date Time Temp Pulse Resp B/P (MAP) Pulse Ox O2 Delivery O2 Flow Rate FiO2 08/30/17 08:15 87 22 158/49 (85) 96 Oxy Mask 3.0 08/30/17 00:21 99.3 Intake and Output 08/31/17 07:00 Intake Total 0 ml Balance 0 ml Intake Oral 0 ml General Appearance: No Acute Distress, Afebrile Neuro: No Gross deficits, Other (able to state her name, speech not slurred) Cardiovascular: Regular Rate and Rhythm Respiratory: No Respiratory Distress, Clear to Auscultation Psych: Other (decreased orientation ) Result Diagram: 08/30/17 0708/30/17 07 Assessment and Plan Problems: (1) Fracture of right hip Status: Acute Assessment & Plan: Secondary to fall that was precipitated by her chronic vertigo. Ortho is following. Due to decreased consciousness, we gave the patient Narcan 0.1mg. She then was able to answer questions more appropriately after Narcan was given. We have stopped the OxyContin and Valium. She will receive Oxycodone 5mg every 6 hours as needed and Tylenol. (2) Anemia Status: Chronic Assessment & Plan: She has an iron deficiency anemia that was worked up with labs and EGD about 10 days ago. She was found to have a distal esophagitis and is on Protonix. This is complicated by MGUS. Her Hgb is stable and has no evidence of bleeding. She did receive a blood transfusion 08/28. Continue oral iron. (3) Essential hypertension Status: Chronic Assessment & Plan: Continue chronic metoprolol, but will hold lisinopril for now. Clonidine prn. (4) Mitral valve stenosis, moderate Assessment & Plan: She had an echo performed prior to surgery for pre- operative evaluation. Echo shows mitral valve has borderline stenosis noted, along with mildly enlarged Right Ventricle and Left Atrium. EF is 70%. Would recommend follow up with cardiology upon discharge. (5) Monoclonal gammopathy Status: Chronic Assessment & Plan: Followed by Dr. Hinojosa. (6) Positional vertigo Status: Chronic Exam Sepsis Risk: No Definite Risk Problem Qualifiers (1) Fracture of right hip: Encounter type: initial encounter Fracture type: closed Qualified Codes: S72.001A - Fracture of unspecified part of neck of right femur, initial encounter for closed fracture (2) Anemia: Anemia type: iron deficiency Iron deficiency anemia type: unspecified iron deficiency Qualified Codes: D50.9 - Iron deficiency anemia, unspecified BETH SHAHID ELEMENTARY EDUCATION TUTOR Aug 30, 2017 14:01
[2017-08-30] MEDS ORDERED: ASPIRIN 325 MG TAB PO ONE (15:10)
[2017-08-30] MEDS: ACETAMINOPHEN 500 MG TAB PO PRN ×2 (18:17→23:11)
[2017-08-30] MEDS: NS(*) 0.9% 1000 ML BAG 1,000 ML IV PRN (18:17)
--- NOTE | 2017-08-30 19:53 | RADIOLOGY IMAGING REPORT ---
FACILITY: [facility] - [place] PATIENT NAME: Myriam Scruggs : 1930 MR: [id number] V: [id number] EXAM DATE: ORDERING PHYSICIAN: JOI MOCTEZUMA TECHNOLOGIST: Location: [facility] [place] Patient: Myriam Scruggs : 1930 Visit/Account:[id number] Date of Sevice: 08/30/2017 EXAMINATION: Portable AP Chest HISTORY: Hypoxia. COMPARISON: 08/27/2017. FINDINGS: The lungs are clear. No focal consolidation or pleural effusion. No pneumothorax. Normal cardiomediastinal silhouette, with normal heart size and pulmonary vascularity. Visualized osseous structures are unremarkable. IMPRESSION: No evidence of acute cardiopulmonary disease. Report Dictated By: Dirk Frey MD at 08/30/2017 7:49 PM Report E-Signed By: Dirk Frye MD at 08/30/2017 7:50 PM WSN:[id number]
[2017-08-30] MEDS ORDERED: MELATONIN 3 MG TAB PO SCH (21:00)
[2017-08-30] MEDS: POLYETHYLENE GLYCOL 17 GM PKT PO SCH (21:00)
[2017-08-31 03:21] VITALS: BP 115/50
[2017-08-31] MEDS: NS(*) 0.9% 1000 ML BAG 1,000 ML IV PRN (04:45)
[2017-08-31] MEDS: ACETAMINOPHEN 500 MG TAB PO PRN (04:49)
[2017-08-31] MEDS: PANTOPRAZOLE SOD 40 MG TABEC PO SCH (04:49)
[2017-08-31 06:23] LABS: PLATELET COUNT, AUTOMATED 193 K/uL (150-450)
[2017-08-31 07:14] VITALS: BP 115/53
[2017-08-31] MEDS: POLYSACCHARIDE IRON COM 150 MG PO SCH (08:43)
[2017-08-31] MEDS: DOCUSATE SODIUM 100 MG CAP PO SCH (08:49)
[2017-08-31 08:50] VITALS: BP 127/58
[2017-08-31] MEDS: METOPROLOL TART 50 MG TAB PO SCH (08:51)
[2017-08-31] MEDS ORDERED: ASPIRIN 325 MG TAB PO SCH (09:00)
[2017-08-31 11:09] VITALS: BP 116/48
[2017-08-31] MEDS ORDERED: ASPI-757 PO (12:59)
[2017-08-31] MEDS ORDERED: ACET-2043 PO (12:59)
--- NOTE | 2017-08-31 13:09 | Hospitalist Depart ---
Discharge Summary Reason for Hosp/Final Diag: (1) Fracture of right hip Status: Acute Hospital Course & Plan: Secondary to fall that was precipitated by her chronic vertigo. Ortho is following. She has done well with just Tylenol for pain. We will continue Tylenol at the [facility]. (2) Anemia Status: Chronic Hospital Course & Plan: She has an iron deficiency anemia that was worked up with labs and EGD about 10 days ago. She was found to have a distal esophagitis and is on Protonix. This is complicated by MGUS. Her Hgb is stable and has no evidence of bleeding. She did receive a blood transfusion . Continue oral iron. (3) Essential hypertension Status: Chronic Hospital Course & Plan: Continue chronic metoprolol and lisinopril. (4) Mitral valve stenosis, moderate Hospital Course & Plan: She had an echo performed prior to surgery for pre- operative evaluation. Echo shows mitral valve has borderline stenosis noted, along with mildly enlarged Right Ventricle and Left Atrium. EF is 70%. Would recommend follow up with cardiology upon discharge. (5) Monoclonal gammopathy Status: Chronic Hospital Course & Plan: Followed by Dr. Hinojosa. (6) Positional vertigo Status: Chronic Departure Latest Vital Signs Vital Signs 08/31/17 11:09 Temp 98.7 Pulse 68 Resp 20 B/P (MAP) 116/48 (70) Pulse Ox 97 O2 Delivery Nasal Cannula O2 Flow Rate 0.5 Weight (Pounds): 149 Weight (Ounces): 2.0 Result Diagram: 08/31/17 0539 08/31/17 0539 Condition: Improved Discharge: Residential Discharge Instructions Home Meds Active Scripts Docusate Sodium (DOCUSATE SODIUM) 100 Mg Capsule, 100 MG PO BID, #60 CAPSULE 1 Refill Prov:ALANNA MORIN MD 08/18/17 Polysaccharide Iron Complex (POLY-IRON) 150 Mg Cap, 150 MG PO BIDBS, #60 CAP 1 Refill Prov:ALANNA MORIN MD 08/18/17 Pantoprazole Sodium (PANTOPRAZOLE SODIUM) 40 Mg Tablet.dr, 40 MG PO QDAY for 30 Days, #30 TAB 1 Refill Prov:ALANNA MORIN MD 08/18/17 Polyethylene Glycol 3350 (POLYETHYLENE GLYCOL 3350) 17 Gm Powd.pack, 17 GM PO QHS for 30 Days, #30 PACKET 1 Refill Mix with 8 ounces of water or juice Prov:ALANNA MORIN MD 08/18/17 Reported Medications Meclizine Hcl (MECLIZINE HCL) 12.5 Mg Tablet, 12.5 MG PO PRN 06/04/17 Metoprolol Tartrate (METOPROLOL TARTRATE) 25 Mg Tablet, 1 TAB PO BID, TAB 10/03/14 Lisinopril (LISINOPRIL) 5 Mg Tablet, 5 MG PO QDAY, TAB 10/03/14 Diet: Regular Activity: As Tolerated, No Heavy Lifting Special Instructions: No lifting more than 15 pounds. Remove dressing and shower 08/31, leave uncovered. follow up in [address] Herbert. Copies to: CRISTOPHER GONZALEZ MD Venous Thromboembolism Antithrombotics Is Pt On Any Antithrombotics?: No Problem Qualifiers (1) Fracture of right hip: Encounter type: initial encounter Fracture type: closed Qualified Codes: S72.001A - Fracture of unspecified part of neck of right femur, initial encounter for closed fracture (2) Anemia: Anemia type: iron deficiency Iron deficiency anemia type: unspecified iron deficiency Qualified Codes: D50.9 - Iron deficiency anemia, unspecified BETH SHAHID PHOTOSTAT OPERATOR Aug 31, 2017 13:09
== END 2017-08-31 15:31 | DRG 482 ==
LOC: ER 22:21 → UNDOADMIN 23:57 → MED 23:57
PROVIDERS: ADMIT Internal Medicine; ATTEND Internal Medicine
PROC: 30233N1 Transfusion of Nonautologous Red Blood Cells into Peripheral Vein, Percutaneous Approach (ICD-10-PCS; 2017-08-28)
PROC: 0QS606Z Reposition Right Upper Femur with Intramedullary Internal Fixation Device, Open Approach (ICD-10-PCS; principal; 2017-08-28 17:07)
DX: S72.141A Displaced intertrochanteric fracture of right femur, initial encounter for closed fracture (principal); R40.4 Transient alteration of awareness; K20.9 Esophagitis, unspecified; D50.9 Iron deficiency anemia, unspecified; I10 Essential (primary) hypertension; I34.2 Nonrheumatic mitral (valve) stenosis; D47.2 Monoclonal gammopathy; H81.10 Benign paroxysmal vertigo, unspecified ear; E78.5 Hyperlipidemia, unspecified; I27.20 Pulmonary hypertension, unspecified; T40.2X5A Adverse effect of other opioids, initial encounter; T42.4X5A Adverse effect of benzodiazepines, initial encounter; I51.7 Cardiomegaly; W19.XXXA Unspecified fall, initial encounter; Y92.019 Unspecified place in single-family (private) house as the place of occurrence of the external cause; Y92.230 Patient room in hospital as the place of occurrence of the external cause; Z88.7 Allergy status to serum and vaccine; Z90.49 Acquired absence of other specified parts of digestive tract; Z98.890 Other specified postprocedural states; R60.0 Localized edema
CPT/HCPCS: 36415; 36416; 71045; 76000; 81001; 82040; 82247; 82274; 82310; 82374; 82435; 82565; 82947; 82948; 84075; 84132; 84155; 84295; 84450; 84460; 84484; 84520; 85014; 85018; 85025; 85610; 85730; 86850; 86900; 86901; 86920; 87088; 87324; 87449; 93005; 93306; 97162; 97166; 99285; J0690; J1100; J1642; J1885; J2001; J2270; J2310; J2405; J2704; J2795; J3010; J3360; J3480; J7030; J7040; J7050; P9016

== ENCOUNTER → 2017-08-27 | Outpatient (CLI) | payer MEDICARE, OTHER ==
[~2017-08-27] MED LIST changes: +ACET-2043 PO; +ASPI-757 PO; +DOCU-202 PO; +IRO150 PO; +PANT40TA65 PO; +POLY17PO21 PO; +POLY17PO25 PO; +ROSU5TAB18
[2017-08-28 08:27] VITALS: BMI 26.4
== END ==
LOC: AMB 21:33
PROVIDERS: ATTEND Nurse Practitioner
DX: R10.2 Pelvic and perineal pain (principal); M79.605 Pain in left leg; W18.30XA Fall on same level, unspecified, initial encounter
CPT/HCPCS: A0425; A0427

== ENCOUNTER → 2017-09-13 | Outpatient (REF) | payer MEDICARE, OTHER ==
[2017-08-28 08:27] VITALS: BMI 26.4
[~2017-09-13] MED LIST changes: +ACET-2043 PO; +ASPI-757 PO
== END ==
LOC: ZZLCC 19:41
PROVIDERS: ATTEND Family Medicine
DX: R60.9 Edema, unspecified (principal)
CPT/HCPCS: 82310; 82374; 82435; 82565; 82947; 84132; 84295; 84520

== ENCOUNTER 2017-10-20 10:32 | Outpatient (RCR) | payer MEDICARE, OTHER ==
[2017-08-28 08:27] VITALS: BMI 26.4
--- NOTE | 2017-08-31 09:40 | SLP BEDSIDE SWALLOW EVALUATION ---
SPEECH THERAPY ASSESSMENT Physician: CRISTIANE Nettles Clinician: Lacy Chavez MS, CCC-CHILD CARE GROUP LEADER Type of Assessment: Dysphagia Evaluation Patient: Myriam Scruggs : 1930, 87yrs Evaluation Date: 08/25/2017 BACKGROUND The patient is an 87yo female admitted to [facility] w/ R hip fracture 2/2 fall precipitated by chronic vertigo. Pt underwent surgery on 08/28, and subsequently received medications to address pain. RN reports significant fluctuations in TIA, which may be correlated to administration of pain medications. RN also reports difficulty swallowing medications w/ thin liquids during periods of decreased alertness. Primary Medical Diagnosis: Pneumonia Pain Scale (0-10): Patient w/ no reports of pain. LOC / Participation: encountered asleep, easily able to rouse. Alert and cooperative. Follows instructions: Intermittently. Benefits from visual cues and increased speaking volume 2/2 notable hearing deficits. Orientation: oriented to person, place, time of day, medical etiology/ pathology. Disoriented to date/day of week. Functional Communication Deficits impact swallow function/safety, or response to therapy: Yes. Patient appears to present w/ mild cog comm deficits (may be exacerbated by hearing loss). Patient w/ tendency to mask hearing difficulties and nod head in agreement, despite evident lack of comprehension/ability to hear information. Recommend reassessment upon admission to SNF. VOICE Vocal Deficits: WFL. DYSPHAGIA Sialorrhea: No Xerostomia: No Hygiene: would benefit from increased regularity of oral hygiene. Supplemental Oxygen Use: Yes. 3LPM via NC. 02 sats maintained above 90 throughout assessment. Respiratory Rate: Normal COPD Dx: No Pain with Swallow: Denies Oral Structure and Function: Oromotor exam was remarkable for mild, generalized weakness of oral musculature. Oromotor status appears consistent w/ generalized physical weakness and fatigue s/p surgery. Mild reduction also noted in hyolaryngeal elevation and excursion to palpation; WFL relative to age and gender. Administered PO trials of thin liquids via straw, pureed solids, and regular solids. Pt also observed w/ medication administration. Oral phase was overall WFL despite mildly prolonged mastication time w/ hard solids. Pt w/ cohesive bolus formation, efficient a-p transit, and appropriate oral clearance across trials w/ all consistencies. Pharyngeal swallow somewhat delayed (1-2 sec); however, all PO trials (including medications) were successfully tolerated w/ out overt s/sx of aspiration. Of note, pt w/ tendency to consume large sips of thin liquids via straw in rapid succession despite cues to reduce rate/volume of intake. Pt was educated re: importance of consuming small bolus sizes at a reduced rate to minimize risk for choking/aspiration. Pt summarized information via teachback, but will likely require reinforcement. ST ASSESSMENT SUMMARY Aspiration Risk: Aspiration Risk: Mildly increased 2/2 age, oral weakness. Risk will likely increase if TIA continues to fluctuate w/ administration of pain medications. Speech Therapy Need Swallow status is appropriate for d/c to SNF. Recommend ST services in SNF environment for continued swallow analysis as medical status stabilizes, and for provision of patient education re: strategies to minimize aspiration risk. Also recommend further cognitive communicative analysis. RECOMMENDATIONS 1. Diet: Regular, thin liquids. 2. Medications: Whole, ok with thin liquids. 3. Compensatory Techniques: regular oral hygiene, upright positioning during PO intake, cues to consume small sips, one at a time. 4. Supervision with meals/snacks: Not warranted. Offer intermittent reminders for swallow safety and continue to monitor performance w/ medication administration. 5. Complete further cognitive communicative assessment as appropriate. PLAN OF CARE D/C to SNF. Thank you for this referral. Lacy Chavez M.S., [facility]-CHILD CARE GROUP LEADER Speech Therapist Physician Signature Date [*] MTDD
[2017-10-20 10:59] VITALS: BP 104/81
[2017-10-20 11:04] LABS: PLATELET COUNT, AUTOMATED 270 K/uL (150-450)
[2017-10-20 11:21] VITALS: BP 104/81
[2017-10-20] MEDS ORDERED: FESO8PT GT (11:30)
[2017-10-20] MEDS ORDERED: TRAM-420 PO (11:30)
--- NOTE | 2017-10-20 16:21 | ONCOLOGY FOLLOW UP NOTE ---
EVENT DATE: October 20, 2017 DIAGNOSES 1. Monoclonal gammopathy of unknown significance. 2. Hypertension. CHIEF COMPLAINT Patient is here today for follow-up of her monoclonal gammopathy of unknown significance. HEMATOLOGY HISTORY Myriam Scruggs is an 87-year-old female who presented with hypercalcemia and renal dysfunction. The patient had a serum protein electrophoresis for evaluation, which demonstrated a monoclonal spike of 0.2 g/dL. HISTORY OF PRESENT ILLNESS Patient is here today for followup of her monoclonal gammography of unknown significance. She has alternating diarrhea and constipation. She has pain in her right hip and right lower extremity after she broke her right hip in August 2017. She is currently in rehab center. She bruises easily. She is weak, tired and fatigued. PAST MEDICAL HISTORY 1. Hypertension. 2. Platelet dysfunction. PAST SURGICAL HISTORY 1. Total abdominal hysterectomy. 2. Bilateral salpingo-oophorectomy. 3. Abdominal surgery for maybe ruptured viscous. The patient is not clear. 4. Bladder repair surgery. FAMILY HISTORY Negative for cancer or blood disease. SOCIAL HISTORY The patient is with two children. Denies any abuse of tobacco, alcohol or drugs. CURRENT MEDICATIONS 1. Lasix 20 mg daily. 2. Aspirin 81 mg daily. 3. Metoprolol 25 mg twice day. 4. Lisinopril 5 mg daily. 5. Toviaz 8 mg at bedtime. ALLERGIES TETANUS, which she calls skin rash, and the patient was swollen up, and she was choked up too. REVIEW OF SYSTEMS CONSTITUTIONAL: No appetite or weight change. No fever, chills or sweating. No recent infection. HEENT: Ears: No tinnitus or hearing problem. Nose: No nasal discharge or epistaxis. Throat: She has dry mouth. Eyes: No diplopia or visual changes. RESPIRATORY: Patient has a dry cough. MUSCULOSKELETAL: She has pain in the right hip and and right lower extremity after she broke her hip in August 2017. NEUROLOGICAL: She has dizziness from vertigo. CARDIOVASCULAR: No chest pain, orthopnea, or paroxysmal nocturnal dyspnea (PND) . No edema. No palpitations. GASTROINTESTINAL: No nausea or vomiting. She has alternating diarrhea and constipation. No change in bowel movements. No heartburn or swallowing difficulties. No abdominal pain. No jaundice. No hematemesis, melena or rectal bleeding. GENITOURINARY: No hematuria or dysuria. HEMATOLOGIC/LYMPHATIC: She bruises easily. No enlarged lymph nodes. She is weak, tired, and fatigued. SKIN: No skin rash or lumps. PSYCHIATRIC: No anxiety or depression. PHYSICAL EXAMINATION GENERAL: Looks stable. Well-developed, well-nourished, and in no acute distress. VITAL SIGNS: Blood pressure 104/81, pulse 60 per minute, respirations 16 per minute, temperature 97.7, pulse ox 94% on room air. HEENT: Head: Atraumatic. No sinus tenderness to palpation. Eyes: No icterus or conjunctivitis. Mouth and throat: No oral thrush or mucositis. NECK: Supple. No cervical or supraclavicular lymphadenopathy. LUNGS: Clear to auscultation and percussion bilaterally. HEART: Regular rate and rhythm. No gallops, murmurs, clicks or rubs. ABDOMEN: Soft and lax. No tenderness. No hepatosplenomegaly. No masses. EXTREMITIES: No cyanosis, clubbing or edema. LYMPHATICS: No peripheral lymphadenopathy. NEUROLOGICAL: Conscious, alert and oriented times three. No focal motor or sensory deficits. PSYCHIATRIC: Mood and affect appear normal. SKIN: No skin rash, bruise or purpuric eruption. DIAGNOSTIC DATA CBC showed white count 6.1, hemoglobin 11.3, hematocrit 34.1, platelets 270, 000. Chem panel totally normal except sodium 133, BUN 19, blood sugar 124, total protein 5.6, albumin 3.1. Myeloma profile is still pending. ASSESSMENT 1. Monoclonal gammopathy of unknown significance. Serum protein immunoelectrophoresis shows an M-spike of IgG lambda at 0.22 g/dL. Her M protein was stable after her diagnosis. Her level for today is still pending. She broke her right hip recently and she is in rehab center at the moment. I am planning to continue followup. I will see her again in six months with CBC, chem panel, LDH, uric acid and myeloma profile. If her protein sharply rises then we will contact her again for further evaluation and management. 2. Hypertension, on treatment. 4. Diabetes mellitus, on treatment. 5. Vertigo with dizzy spells. 6. Right hip fracture, August 2017. PLAN 1. Continue followup. 2. Patient to return in six months with CBC, chem panel, LDH, uric acid and myeloma profile. 3. Patient to contact us for any new concern or complaints. LONAD
== END 2017-10-24 10:15 | disposition home or self-care (01) ==
LOC: ONC 10:32
PROVIDERS: ATTEND Internal Medicine Hematology
DX: D47.2 Monoclonal gammopathy (principal); I10 Essential (primary) hypertension; E11.9 Type 2 diabetes mellitus without complications; R42 Dizziness and giddiness; R53.1 Weakness; R53.83 Other fatigue
CPT/HCPCS: 36415; 82232; 83615; 83883; 84550; 85025; 86334; G0463; 82040; 82247; 82310; 82374; 82435; 82565; 82947; 84075; 84132; 84155; 84295; 84450; 84460; 84520; 99212

== ENCOUNTER → 2018-03-22 | Outpatient (CLI) | payer MEDICARE, OTHER ==
[2017-08-28 08:27] VITALS: BMI 26.4
[~2018-03-22] MED LIST changes: +POLY17PO11 PO; -POLY17PO21 PO; -ROSU5TAB18; +ROSU5TAB3
--- NOTE | 2018-03-22 16:59 | RADIOLOGY IMAGING REPORT ---
FACILITY: [facility] PATIENT NAME: Myriam Scruggs : 1930 MR: [id number] V: [id number] EXAM DATE: ORDERING PHYSICIAN: TIARA YEPEZ TECHNOLOGIST: [place] [facility] [place] Myriam Scruggs : 1930 Visit/Account:[id number] Date of Sevice: 03/22/2018 LUMBAR SPINE 2 OR 3 VIEW HISTORY: Fall, back pain COMPARISON: CT examination lumbar spine from May 2017 FINDINGS: Mild right curvature lumbar spine, apex inferior endplate L2 vertebra. Moderate multilevel spondylotic changes with joint space narrowing, increased endplate sclerosis and bony spurring throughout, this is most notable with moderate to severe spondylosis at L4-L5. Mild to moderate lower lumbar facet arthrosis. No evidence of acute fracture or destructive osseous process . Overall, the bones appear osteopenic. IMPRESSION: 1. Osteopenia. 2. Moderate multilevel spondylosis with more moderate to severe spondylotic changes L4-L5. 2. Mild to moderate multilevel facet arthrosis, most notable lower lumbar spine. Report Dictated By: Jerome Cuevas MD at 03/22/2018 4:53 PM Report E-Signed By: Jerome Cuevas MD at 03/22/2018 4:55 PM WSN:[email or web address]
--- NOTE | 2018-03-22 17:00 | RADIOLOGY IMAGING REPORT ---
[place] [facility] [place] NAME: Myriam Scruggs : 1930 MR: [id number] V: [id number] EXAM DATE: ORDERING PHYSICIAN: TIARA YEPEZ TECHNOLOGIST: Location: [facility] Patient: Myriam Scruggs : 1930 Visit/Account:[id number] Date of Sevice: 03/22/2018 THORACIC SPINE 3 VIEWS HISTORY: Fall, back pain COMPARISON: X-ray examination of the chest August 2017. CT examination thoracic spine December 07, 2016 FINDINGS: Mild left curvature thoracic spine, apex near the T10 vertebra. There is mild multilevel spondylotic changes with disc space narrowing and endplate spurring. No fra cture or destructive osseous process. The alignment appears anatomic. IMPRESSION: 1. Osteopenia. 2. Mild multilevel spondylotic changes without acute osseous finding. Report Dictated By: Jerome Cuevas MD at 03/22/2018 4:56 PM Report E-Signed By: Jerome Cuevas MD at 03/22/2018 4:57 PM WSN:[email or web address]
== END ==
LOC: RAD 14:42
PROVIDERS: ATTEND Family Medicine
DX: M47.815 Spondylosis without myelopathy or radiculopathy, thoracolumbar region (principal); M46.96 Unspecified inflammatory spondylopathy, lumbar region; M85.80 Other specified disorders of bone density and structure, unspecified site; M54.14 Radiculopathy, thoracic region
CPT/HCPCS: 72072; 72100

== ENCOUNTER 2018-04-16 06:54 | Outpatient (RCR) | payer MEDICARE, OTHER ==
[2017-08-28 08:27] VITALS: BMI 26.4
== END 2018-04-16 16:51 | disposition home or self-care (01) ==
LOC: ONC 06:54
PROVIDERS: ATTEND Internal Medicine Hematology
DX: D47.2 Monoclonal gammopathy (principal)

== ENCOUNTER 2018-04-19 13:30 | Emergency (ER) | payer MEDICARE, OTHER ==
[2017-08-28 08:27] VITALS: Wt 60.8 kg
--- NOTE | 2018-04-19 13:38 | ER Report ---
History and Physical Time Seen By MD: 13:38 Hx. of Stated Complaint: pt was clipping toenails and caught part of her toe HPI/ROS CHIEF COMPLAINT: Left toe laceration HISTORY OF PRESENT ILLNESS: Patient is an 87-year-old female here with a left great toe laceration. This morning, the patient was reportedly cutting her canal and she slipped and cut the distal aspect of her toe creating a flap. She was sent in by physical therapy for evaluation of the laceration and bleeding. Patient has no other complaints at this time. Last tetanus was administered greater than 20 years ago but she did have a serious reaction to immunization at that time. REVIEW OF SYSTEMS: Constitutional: No fever, no chills. Musculoskeletal: Left great toe laceration, hammertoe deformity of the left great toe Skin: One centimeter diameter flap laceration to distal aspect of the left great toe Neurological: Neurovascularly intact in the distal extremities Allergies: Coded Allergies: Tetanus Vaccines and Toxoid (Verified Allergy, Intermediate, 04/19/18) Home Meds Active Scripts Acetaminophen (ACETAMINOPHEN) 500 Mg Tablet, 500 MG PO Q4H PRN for PAIN, #30 TAB Prov:[facility] 08/31/17 Aspirin (ASPIRIN) 325 Mg Tablet, 325 MG PO QDAY, #30 TAB Prov:[facility] 08/31/17 Docusate Sodium (DOCUSATE SODIUM) 100 Mg Capsule, 100 MG PO BID, #60 CAPSULE 1 Refill Prov:ALANNA MORIN MD 08/18/17 Polysaccharide Iron Complex (POLY-IRON) 150 Mg Cap, 150 MG PO BIDBS, #60 CAP 1 Refill Prov:ALANNA MORIN MD 08/18/17 Pantoprazole Sodium (PANTOPRAZOLE SODIUM) 40 Mg Tablet.dr, 40 MG PO QDAY for 30 Days, #30 TAB 1 Refill Prov:ALANNA MORIN MD 08/18/17 Polyethylene Glycol 3350 (POLYETHYLENE GLYCOL 3350) 17 Gm Powd.pack, 17 GM PO QHS for 30 Days, #30 PACKET 1 Refill Mix with 8 ounces of water or juice Prov:ALANNA MORIN MD 08/18/17 Reported Medications Tramadol Hcl (TRAMADOL HCL) 50 Mg Tablet, 50-100 MG PO Q4-6H for PAIN, TAB 10/20/17 Fesoterodine Fumarate (TOVIAZ) 8 Mg Tabsr, 8 MG GT 10/20/17 Meclizine Hcl (MECLIZINE HCL) 12.5 Mg Tablet, 12.5 MG PO PRN 06/04/17 Metoprolol Tartrate (METOPROLOL TARTRATE) 25 Mg Tablet, 1 TAB PO BID, TAB 10/03/14 Lisinopril (LISINOPRIL) 5 Mg Tablet, 5 MG PO QDAY, TAB 10/03/14 Hx Smoking: No Smoking Status: Never Smoker Hx Substance Use Disorder: No Hx Alcohol Use: Yes (rare) Constitutional Vital Sign - Last 24 Hours 04/19/18 13:34 Temp 98.1 Pulse 8 Resp 20 B/P (MAP) 155/64 Pulse Ox 91 O2 Delivery Room Air Physical Exam General Appearance: The patient is alert, has no immediate need for airway protection and no signs of toxicity. NAD Neurological: NV intact in the distal lower extremities Skin: + 1 cm diameter flap laceration to the left great distal toe Musculoskeletal: Extremities are nontender, nonswollen and have full range of motion. DIFFERENTIAL DIAGNOSIS: After history and physical exam differential diagnosis was considered for laceration, avulsion Medical Decision Making ED Course/Re-evaluation ED Course Patient is an 87-year-old female here with a small flap laceration to the left great toe. Patient came into the emergency department due to significant bleeding. Site was cleaned, flap was removed due to poor vascular supply. Remaining wound was sealed using Dermabond glue. Patient was advised to keep the site clean, rinsed with soap and water. Patient was advised to follow-up with her PCP in the next week. She was also advised to return promptly to emergency department if she develop signs of infection. Patient was not given tetanus booster due to history of significant reaction to the immunization. Patient precautions given. Decision to Disposition Date: Apr 19, 2018 Decision to Disposition Time: 14:08 Depart Departure Latest Vital Signs Vital Signs Date Time Temp Pulse Resp B/P (MAP) Pulse Ox O2 Delivery O2 Flow Rate FiO2 04/19/18 13:34 98.1 8 20 155/64 91 Room Air Impression: Primary Impression: Laceration of toe of left foot Condition: Improved Disposition: HOME OR SELF-CARE Patient Instructions: Laceration (ED) Additional Instructions: Your laceration was closed using Dermabond medical glue. Please keep the site clean, you may scrub with soap and water. Please monitor for signs of infection such as swelling, redness, pain, drainage, fever. EDGAR MEREDITH DO Apr 19, 2018 13:38
[2018-04-19] MEDS ORDERED: OCTYL CYANOACRYLATE 1 APP APPL TP ONE (13:45)
[2018-04-19 14:15] VITALS: BP 136/68
== END 2018-04-19 14:15 | disposition home or self-care (01) ==
LOC: ER 13:45
DX: S91.112A Laceration without foreign body of left great toe without damage to nail, initial encounter (principal)
CPT/HCPCS: 99283

== ENCOUNTER 2018-05-10 11:23 | Outpatient (RCR) | payer MEDICARE, OTHER ==
[2017-08-28 08:27] VITALS: Wt 65.7 kg
[2018-05-02 11:53] VITALS: BP 169/93
[2018-05-02 12:18] LABS: PLATELET COUNT, AUTOMATED 242 K/uL (150-450)
[2018-05-10 11:29] VITALS: BP 159/67
[2018-05-10] MEDS ORDERED: INFLUENZA VIRUS VAC 0.5ML SYR IM ONLY ONE (12:05)
--- NOTE | 2018-05-10 18:46 | EL-TARABILY ONCOLOGY NOTE ---
EVENT DATE: May 10, 2018 DIAGNOSES 1. Monoclonal gammopathy of unknown significance. 2. Hypertension. CHIEF COMPLAINT Patient is here today for follow-up of her monoclonal gammopathy of unknown significance. HEMATOLOGY HISTORY Myriam Scruggs is an 87-year-old female who presented with hypercalcemia and renal dysfunction. The patient had a serum protein electrophoresis for evaluation, which demonstrated a monoclonal spike of 0.2 g/dL. HISTORY OF PRESENT ILLNESS Patient is here today for followup of her monoclonal gammography of unknown significance. She is doing fine currently. She has urinary incontinence and she has some dry cough and easy bruising but other than that she is really having stable general condition. PAST MEDICAL HISTORY 1. Hypertension. 2. Platelet dysfunction. PAST SURGICAL HISTORY 1. Total abdominal hysterectomy. 2. Bilateral salpingo-oophorectomy. 3. Abdominal surgery for maybe ruptured viscous. The patient is not clear. 4. Bladder repair surgery. FAMILY HISTORY Negative for cancer or blood disease. SOCIAL HISTORY The patient is with two children. Denies any abuse of tobacco, alcohol or drugs. CURRENT MEDICATIONS 1. Lasix 20 mg daily. 2. Aspirin 81 mg daily. 3. Metoprolol 25 mg twice day. 4. Lisinopril 5 mg daily. 5. Toviaz 8 mg at bedtime. ALLERGIES TETANUS, which she calls skin rash, and the patient was swollen up, and she was choked up too. REVIEW OF SYSTEMS CONSTITUTIONAL: No appetite or weight change. No fever, chills or sweating. No recent infection. HEENT: Ears: No tinnitus or hearing problem. Nose: No nasal discharge or epistaxis. Throat: She has dry mouth. Eyes: No diplopia or visual changes. RESPIRATORY: She has dry cough. MUSCULOSKELETAL: She has pain in the right hip and and right lower extremity after she broke her hip in August 2017. NEUROLOGICAL: She has dizziness from vertigo. CARDIOVASCULAR: No chest pain, orthopnea, or paroxysmal nocturnal dyspnea (PND). No edema. No palpitations. GASTROINTESTINAL: No nausea or vomiting. She has alternating diarrhea and constipation. No change in bowel movements. No heartburn or swallowing difficulties. No abdominal pain. No jaundice. No hematemesis, melena or rectal bleeding. GENITOURINARY: She has urinary incontinence. HEMATOLOGIC/LYMPHATIC: She has easy bruising. SKIN: No skin rash or lumps. PSYCHIATRIC: No anxiety or depression. PHYSICAL EXAMINATION GENERAL: Looks stable. Well-developed, well-nourished, and in no acute distress. VITAL SIGNS: Blood pressure 159/67, pulse 82 per minute, respirations 16 per minute, temperature 96.8, pulse ox 94% on room air. HEENT: Head: Atraumatic. No sinus tenderness to palpation. Eyes: No icterus or conjunctivitis. Mouth and throat: No oral thrush or mucositis. NECK: Supple. No cervical or supraclavicular lymphadenopathy. LUNGS: Clear to auscultation and percussion bilaterally. HEART: Regular rate and rhythm. No gallops, murmurs, clicks or rubs. ABDOMEN: Soft and lax. No tenderness. No hepatosplenomegaly. No masses. EXTREMITIES: No cyanosis, clubbing or edema. LYMPHATICS: No peripheral lymphadenopathy. NEUROLOGICAL: Conscious, alert and oriented times three. No focal motor or sensory deficits. PSYCHIATRIC: Mood and affect appear normal. SKIN: No skin rash, bruise or purpuric eruption. DIAGNOSTIC DATA CBC showed white count 4.9, hemoglobin 12.3, hematocrit 36.7, platelets 242,000. Chem panel totally normal except BUN 19. Serum protein immunoelectrophoresis showed monoclonal band of IgG lambda at 0.29 g/dL. Her IgG level was 569, IgA was 144 and IgM 92. Other parameters are normal. ASSESSMENT 1. Monoclonal gammopathy of unknown significance. Serum protein immunoelectrophoresis shows an M-spike of IgG lambda at 0.22 g/dL. Her current M-protein is 0.29 g/dL, which is stable. Quantitative immunoglobulin is normal except mild reduction of IgG at 569. The patient is doing very well currently. I am planning to continue followup. I will see her again in six months with CBC, chem panel, LDH, uric acid and myeloma profile. 2. Hypertension, on treatment. 4. Diabetes mellitus, on treatment. 5. Vertigo with dizzy spells. 6. Right hip fracture, August 2017. PLAN 1. Continue followup. 2. Patient to return in six months with CBC, chem panel, LDH, uric acid and myeloma profile. 3. Patient to contact us for any new concern or complaints. [facility]
== END 2018-06-18 13:28 | disposition home or self-care (01) ==
LOC: ONC 11:23
PROVIDERS: ATTEND Internal Medicine Hematology
DX: D47.2 Monoclonal gammopathy (principal); I10 Essential (primary) hypertension; E11.9 Type 2 diabetes mellitus without complications; R42 Dizziness and giddiness; R53.1 Weakness; R53.83 Other fatigue; Z23 Encounter for immunization
CPT/HCPCS: 36415; 82232; 83615; 83883; 84550; 85025; 86334; G0008; G0463; Q2037; 82040; 82247; 82310; 82374; 82435; 82565; 82947; 84075; 84132; 84155; 84295; 84450; 84460; 84520; 90674; 99212

== ENCOUNTER → 2018-05-17 | Outpatient (RCR) | payer MEDICARE, OTHER ==
[2017-08-28 08:27] VITALS: BMI 26.4
--- NOTE | 2018-02-16 14:51 | PT INITIAL EVALUATION ---
MEDICAL DIAGNOSIS: Imbalance, Altered gait, Leg pain TREATMENT DIAGNOSIS: Same DATE OF ONSET: 08/27/17 SUBJECTIVE: Myriam Scruggs presents to PT for high fall risk from reduced gait and balance. She sustained a R hip fracture at home 08/27/17 with ORIF 08/28/17. Myriam would like to advance from her RW to a cane, and regain in home independent ambulation. Pain location is R lateral hip, IT band, lateral knee and described as tightness, ache. Pain scale is 2 on a ten point pain scale. Pain is worse with stretching, walking and better with rest. REHAB PROBLEM LIST: Increased Pain Decreased ROM Decreased Strength Impaired Transfers Decreased Endurance Decreased Balance Decreased Function Decreased Mobility Decreased Gait PREVIOUS MEDICAL HISTORY: R hip fracture, vertigo, cystocele, R shoulder injury and skin cancer. 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 OBJECTIVE: Posture: Heels 8" apart, increased thoracic kyphosis, knees -5 deg. B. ROM: LE's AROM WFL. Strength: R LE 3+/5 hamstrings and quad, ankle DF 4-/4, PF 3/5. L LE 4/5. Mobility: Sit to stand pushing her LE's against the bed. Gait: RW, feet pass each other, L clears the floor, R scuffs mildly, gait speed .8 ft/second. Balance: Tinetti Gait and Balance 14, a high fall risk. Myriam turns a full absentee-shawnee with discordant steps, unsteady. Functional reach 5". ASSESSMENT: Myriam Scruggs presents with high fall risk from imbalance, weakness, limited community ambulation. She did well with gentle balance exercise today. Short Term Goals One month: Myriam ambulates short community distances with RW, Tinetti Gait and Balance 18 to reduce fall risk. Two months: Myriam ambulates 100 feet with cane, turns smoothly, Tinetti Gait and Balance 19-20 for reduced fall risk. Three months: Myrima ambulates 20 feet independently at home, short distance community ambulator with cane, Tinetti Gait and Balance 22 to reduce fall risk. Patient's Goals Walk across the living room independently, shop with a cane with her daughter, stand 15 min. while cooking. PLAN: Patient to be seen for Strengthening/condition Range of Motion Stretching Neuromuscular Re-ed Gait Trg/Balance Trg Home Exercise Program 2x/Week for 3 months Thank you for this referral. If you have any questions, comments, or concerns about this report or plan, please contact me at . LONAD
--- NOTE | 2018-04-03 16:11 | PT PLAN OF CARE ---
Physician: Dr. Judd Hammond Patient is being seen: 2x/week Therapist: Chula Ronquillo PT Medical Diagnosis: Imbalance, Altered gait, Leg pain Treatment Diagnosis: Same Date of Onset: 08/27/17 Date of Initial Evaluation: 02/16/18 Date patient was last seen: 03/29/18 Number of treatments: 10 Number of cancellations/No shows: 3 INTERVENTIONS: Strengthening/condition Neuromuscular Re-ed Gait Trg/Balance Trg Home Exercise Program GOALS: One month: Myriam ambulates short community distances with RW, Tinetti Gait and Balance 18 to reduce fall risk. progressing Two months: Myriam ambulates 100 feet with cane (met), turns smoothly (progressing), Tinetti Gait and Balance 19-20 for reduced fall risk (not met). Three months: Myriam ambulates 20 feet independently at home, short distance community ambulator with cane, Tinetti Gait and Balance 22 to reduce fall risk. (all not met) PATIENT'S GOAL: Walk across the living room independently (not met), shop with a cane with her daughter (not met), stand 15 min. while cooking (met). Patient Compliance: Excellent Prognosis: Excellent Reasons for continuing therapy: S: Myriam relates her home chair transfers are easier and she's shopped with a cart with her daughter. She fell 1.5 weeks ago and reports R lateral hip pain. She states she fell due to vertigo. Posture: Heels 8" apart, increased thoracic kyphosis, knees 0 deg. B. Strength: R LE 4-/5 hamstrings and quad. Sit/Stand 21" seat height with concentric quad control. Gait/Balance: Tinetti Gait and Balance improved from 14 to 17, still a high fall risk. Myriam ambulate with RW with heels passing each other, clearing the floor. She turns with almost smooth motion. Mobility: Sit to stand independent, no UE use, 1 attempt. Other: Negative Hallpike for vertigo or nystagmus, R hip PRAFUL for hip joint pain. A/P: Myriam Scruggs has improved mobility, gait, strength and function but is still a high fall risk. If you agree, we'll continue gently as she tolerates to goals set. [facility]
--- NOTE | 2018-05-14 09:06 | PT PLAN OF CARE ---
Physician: Dr. Judd Hammond Patient is being seen: 2x/week Therapist: Chula Ronquillo PT Medical Diagnosis: Imbalance, Altered gait, Leg pain Treatment Diagnosis: Same Date of Onset: 08/27/17 Date of Initial Evaluation: 02/16/18 Date patient was last seen: 05/03/18 Number of treatments: 20 Number of cancellations/No shows: 1 INTERVENTIONS: Strengthening/condition Range of Motion Stretching Neuromuscular Re-ed Gait Trg/Balance Trg Home Exercise Program GOALS: One month: Myriam ambulates short community distances with RW, Tinetti Gait and Balance 18 to reduce fall risk. both met Two months: Myriam ambulates 100 feet with cane, turns smoothly (progressing), Tinetti Gait and Balance 19-20 for reduced fall risk (met). Three months: Myriam ambulates 20 feet independently at home (not met), short distance community ambulator with cane (not met), Tinetti Gait and Balance 22 to reduce fall risk (met). PATIENT'S GOAL: Walk across the living room independently (not met), shop with a cane with her daughter (not met), stand 15 min. while cooking (progressing). ] Patient Compliance: Excellent Prognosis: Excellent Reasons for continuing therapy: S: Myriam relates she can use a shopping cart to ambulate short shopping trips now. She's fatigued with cane gait. Posture: Heels 6" apart. Gait: RW with feet passing each other and clearing the floor. Gait with 1 or 2 SPC with verbal cues, fatigued with short distances. Balance: Tinetti Gait and Balance test improved to 24, a low fall risk. Mobility: Sit to stand independently. A/P Myriam Scruggs continues to improve gait, balance and mobility. If you agree, we'll continue at 2x/week to goals set. Thank you. JUDITH
== END ==
LOC: PT 02-16 13:05
PROVIDERS: ATTEND Family Medicine
DX: R26.9 Unspecified abnormalities of gait and mobility (principal); M79.604 Pain in right leg; R53.1 Weakness; Z91.81 History of falling; Z87.81 Personal history of (healed) traumatic fracture
CPT/HCPCS: 97162

== ENCOUNTER 2018-06-19 13:00 | Outpatient (RCR) | payer MEDICARE, OTHER ==
[2017-08-28 08:27] VITALS: BMI 26.4
--- NOTE | 2018-05-22 16:31 | PT PLAN OF CARE ---
Physician: Dr. Judd Hammond 3 month business office note Patient is being seen: 2x/week Therapist: Chula Ronquillo PT Medical Diagnosis: Imbalance, Altered gait, Leg pain Treatment Diagnosis: Same Date of Onset: 08/27/17 Date of Initial Evaluation: 02/16/18 Date patient was last seen: 05/22/18 Number of treatments: 24 Number of cancellations/No shows: 6 INTERVENTIONS: Strengthening/condition Neuromuscular Re-ed GOALS: One month: Myriam ambulates short community distances with RW, Tinetti Gait and Balance 18 to reduce fall risk. both met Two months: Myriam ambulates 100 feet with cane, turns smoothly (progressing), Tinetti Gait and Balance 19-20 for reduced fall risk (met). Three months: Myriam ambulates 20 feet independently at home (not met), short distance community ambulator with cane (not met), Tinetti Gait and Balance 22 to reduce fall risk (met). New Goals: Azar Balance Assessment 45, to reduce fall risk to norms. PATIENT'S GOAL: Walk across the living room independently (not met), shop with a cane with her daughter (not met), stand 15 min. while cooking (progressing). Patient Compliance: Excellent Prognosis: Excellent Reasons for continuing therapy: S: Myriam relates she's trying a cane inside her home but has sequencing difficulties. Of note, Mryiam relates she's exhausted from caring for her (dementia) and inquires into intermediate or memory care placement. Posture: Heels 4" apart, increased thoracic kyphosis, knees -5 deg. B. Strength: R LE 3+/5 hamstrings and quad, ankle DF 4-/4, PF 3/5. L LE 4/5. Gait: RW with feet passing each other and clearing the floor. Gait with SPC with feet not passing each other or clearing the floor, moderate assist of 1 at the free hand. Cane gait with proper sequencing 90% of the time, but not safe for independent gait due to poor balance. Balance: Azar Balance Assessment 39/56, a 30% impairment. Myriam turns slowly but safely, functional reach 5", is double limb support only. Mobility: Sit to stand without UE use, immediate steady standing balance. A/P: Myriam Scruggs continues to improve gait, balance, strength but hasn't met goals yet. If you agree, we'll continue 2x/week another 1-2 months to goals set. I've asked our social sciences chair to visit with Myriam during one of her PT appointments when her isn't right by her to help Myriam with information. Thank you. JUDITH
--- NOTE | 2018-06-14 14:43 | NUR ---
DAIANA rec'd a referral from physical therapist stating the patient was starting to get worried about living with her with dementia and wanted to discuss options for assisted living. DAIANA met with the pt independently to talk about her concerns, and then again met with her with [facility] representatives who were able to answer more of her questions. DAIANA will remain available to the pt as needs arise.
--- NOTE | 2018-06-25 15:28 | PT PLAN OF CARE ---
Physician: Dr. Judd Hammond Patient is being seen: 2x/week Therapist: Chula Ronquillo, PT Medical Diagnosis: Imbalance, Altered gait, Leg pain Treatment Diagnosis: Same Date of Onset: 08/27/17 Date of Initial Evaluation: 02/16/18 Date patient was last seen: 06/19/18 Number of treatments: 31 Number of cancellations/No shows: 6 INTERVENTIONS: Strengthening/condition Neuromuscular Re-ed Gait Trg/Balance Trg Home Exercise Program GOALS: One month: Myriam ambulates short community distances with RW, Tinetti Gait and Balance 18 to reduce fall risk. both met Two months: Myriam ambulates 100 feet with cane, turns smoothly (progressing), Tinetti Gait and Balance 19-20 for reduced fall risk (met). New Goals: Azar Balance Assessment 45, to reduce fall risk to norms. Three months: Myriam ambulates 20 feet independently at home (not met), short distance community ambulator with cane (progressed), Tinetti Gait and Balance 22 to reduce fall risk (met). PATIENT'S GOAL: Walk across the living room independently (not met), shop with a cane with her daughter (not met), stand 15 min. while cooking (progressing). 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 O: At her last visit, Myriam had improved cane gait to feet clearing michael floor, good sequence but still LOB. A/P: Myriam advanced with gait, still was a fall risk though with SPC gait. As she's going to [facility], I need to DC outpatient PT. If I can be of service with Myriam's rehab, I would be happy to do so. Thank you. JUDITH
== END 2018-06-19 18:00 | disposition home or self-care (01) ==
LOC: PT 13:00
PROVIDERS: ATTEND Family Medicine
DX: R26.89 Other abnormalities of gait and mobility (principal); M79.604 Pain in right leg

== ENCOUNTER 2018-06-21 01:32 | Emergency (ER) | payer MEDICARE, OTHER ==
[2017-08-28 08:27] VITALS: Wt 64.4 kg
--- NOTE | 2018-06-21 01:52 | ER Report ---
History and Physical Time Seen By MD: 01:52 Hx. of Stated Complaint: headache for 2-3 hours, stomach cramping. states she feels better after having a bm HPI/ROS CHIEF COMPLAINT: Severe right sided headache, some bowel cramping HISTORY OF PRESENT ILLNESS: This is an 88-year-old female. Sudden onset of severe headache on the right side of her head about 3 hours ago. She feels it in the right restorationism and extends to the right parietal occipital region. She states that it feels like pressure or throbbing in quality. Nothing makes it worse or better. She does not usually get headaches. There have been no falls or injuri es. She does not have any visual changes. She wears hearing aids and has no ringing in her ears. She denies any neck pain. No fevers or chills. The only additional complaint she had was some cramping in her lower abdomen that resolved tonight after a normal bowel movement. No trouble with urination. She has no weakness or loss of sensation in her arms or legs. She does use a daily 325 mg aspirin but no other blood thinners. She does have a history of hypertension and is on some Toprol and metoprolol for this. Allergies: Coded Allergies: Tetanus Vaccines and Toxoid (Verified Allergy, Intermediate, 04/19/18) Home Meds Active Scripts Acetaminophen (ACETAMINOPHEN) 500 Mg Tablet, 500 MG PO Q4H PRN for PAIN, #30 TAB Prov:BETH SHAHID [facility] 08/31/17 Aspirin (ASPIRIN) 325 Mg Tablet, 325 MG PO QDAY, #30 TAB Prov:BETH SHAHID [facility] 08/31/17 Docusate Sodium (DOCUSATE SODIUM) 100 Mg Capsule, 100 MG PO BID, #60 CAPSULE 1 Refill Prov:ALANNA MORIN MD 08/18/17 Polysaccharide Iron Complex (POLY-IRON) 150 Mg Cap, 150 MG PO BIDBS, #60 CAP 1 Refill Prov:ALANNA MORIN MD 08/18/17 Pantoprazole Sodium (PANTOPRAZOLE SODIUM) 40 Mg Tablet.dr, 40 MG PO QDAY for 30 Days, #30 TAB 1 Refill Prov:ALANNA MORIN MD 08/18/17 Polyethylene Glycol 3350 (POLYETHYLENE GLYCOL 3350) 17 Gm Powd.pack, 17 GM PO QHS for 30 Days, #30 PACKET 1 Refill Mix with 8 ounces of water or juice Prov:ALANNA MORIN MD 08/18/17 Reported Medications Tramadol Hcl (TRAMADOL HCL) 50 Mg Tablet, 50-100 MG PO Q4-6H for PAIN, TAB 10/20/17 Fesoterodine Fumarate (TOVIAZ) 8 Mg Tabsr, 8 MG GT 10/20/17 Meclizine Hcl (MECLIZINE HCL) 12.5 Mg Tablet, 12.5 MG PO PRN 06/04/17 Metoprolol Tartrate (METOPROLOL TARTRATE) 25 Mg Tablet, 1 TAB PO BID, TAB 10/03/14 Lisinopril (LISINOPRIL) 5 Mg Tablet, 5 MG PO QDAY, TAB 10/03/14 Past Medical/Surgical History Past medical history: Hypertension, monoclonal gammopathy of unknown significance, platelet dysfunction, hiatal hernia, esophagitis, positional vertigo. Past surgical history includes tonsillectomy, cholecystectomy, hysterectomy, bilateral salpingo-oophorectomy, bladder surgery, and past history of abdominal surgery for ruptured viscus (uncertain history). Reviewed Nurses Notes: Yes Hx Smoking: No Smoking Status: Never Smoker Hx Substance Use Disorder: No Hx Alcohol Use: Yes (rare) Constitutional Vital Sign - Last 24 Hours 06/21/18 06/21/18 06/21/18 06/21/18 01:39 01:41 02:02 02:32 Temp 97.7 Pulse 81 74 77 Resp 16 B/P (MAP) 143/80 (101) 143/80 Pulse Ox 92 95 93 O2 Delivery Room Air Physical Exam General Appearance: The patient is alert. No acute distress. Head: There is no sign of external trauma. She does have some discomfort with palpation throughout the right side of her head. Eyes: Pupils are equal, round. Reactive to light. No pallor, injection or icterus. Extraocular movements are intact. No nystagmus. Normal visual vigil by direct confrontation. ENT: Mucous membranes are moist. Normal oral mucosa. Posterior oropharynx is normal. Normal tympanic membranes and canals. She wears hearing aids and is very hard of hearing. Neck: Supple and non tender. Respiratory: Breathing easily and unlabored. Lungs are clear to auscultation. Cardiovascular: Regular rate and rhythm. No murmurs, gallops or rubs. Normal capillary refill. Gastrointestinal: Abdomen is soft and non tender. Nondistended. Normal active bowel sounds. Neurological: Alert and oriented x3. Cranial nerves with eye exam as noted above. There is no facial droop. Normal sensation in the face. Midline tongue. Symmetric palate elevation. Extremities are grossly normal with strength and sensation. Skin: Warm and dry. No rashes. No bruising. Musculoskeletal: Extremities are nontender. No tenderness in palpation of the cervical, thoracic and lumbar spine. DIFFERENTIAL DIAGNOSIS: After history and physical exam, differential diagnosis was considered for a patient with severe onset of headache 3 hours ago with no history of headaches, including but not limited to subarachnoid or other intracranial hemorrhage, migraine headache, tension headache and infectious causes such as meningitis, pharyngitis and sinusitis, and other causes of headache such as vasculitis or temporal arteritis. Medical Decision Making Data Points Result Diagram: 06/21/18 0319 06/21/18 0223 Laboratory Hematology Test 06/21/18 02:23 06/21/18 03:19 Sodium Level 134 mmol/L (137-145) Potassium Level 4.1 mmol/L (3.5-5.0) Chloride Level 105 mmol/L (98-107) Carbon Dioxide Level 21 mmol/L (22-31) Blood Urea Nitrogen 22 mg/dl (7-18) Creatinine 0.70 mg/dl (0.52-1.04) Glomerular Filtration Rate Calc > 60.0 Random Glucose 196 mg/dl (75-110) Calcium Level 9.8 mg/dl (8.4-10.2) Total Bilirubin 0.4 mg/dl (0.2-1.3) Aspartate Amino Transf (AST/SGOT) 19 U/L (0-35) Alanine Aminotransferase (ALT/SGPT) 16 U/L (0-56) Alkaline Phosphatase 117 U/L (0-126) C-Reactive Protein 0.6 mg/dl (<1.0) Total Protein 6.2 g/dl (6.3-8.2) Albumin 3.6 g/dl (3.5-5.0) Red Blood Count 4.08 M/uL (4.17-5.56) Mean Corpuscular Volume 95.8 fL (80.0-96.0) Mean Corpuscular Hemoglobin 31.7 pg (26.0-33.0) Mean Corpuscular Hemoglobin Concent 33.1 g/dL (32.0-36.0) Red Cell Distribution Width 13.6 % (11.5-14.5) Mean Platelet Volume 10.3 fL (7.2-11.1) Neutrophils (%) (Auto) 82.7 % (39.4-72.5) Lymphocytes (%) (Auto) 6.3 % (17.6-49.6) Monocytes (%) (Auto) 10.2 % (4.1-12.4) Eosinophils (%) (Auto) 0.4 % (0.4-6.7) Basophils (%) (Auto) 0.4 % (0.3-1.4) Nucleated RBC Relative Count (auto) 0.0 /100WBC Neutrophils # (Auto) 11.5 K/uL (2.0-7.4) Lymphocytes # (Auto) 0.9 K/uL (1.3-3.6) Monocytes # (Auto) 1.4 K/uL (0.3-1.0) Eosinophils # (Auto) 0.1 K/uL (0.0-0.5) Basophils # (Auto) 0.1 K/uL (0.0-0.1) Nucleated RBC Absolute Count (auto) 0.00 K/uL Erythrocyte Sedimentation Rate 6 mm/HOUR (0-30) Prothrombin Time 13.0 seconds (12.0-14.4) Prothromb Time International Ratio 0.98 Activated Partial Thromboplast Time 25 seconds (23-35) Chemistry Test 06/21/18 02:23 06/21/18 03:19 Glomerular Filtration Rate Calc > 60.0 Calcium Level 9.8 mg/dl (8.4-10.2) Total Bilirubin 0.4 mg/dl (0.2-1.3) Aspartate Amino Transf (AST/SGOT) 19 U/L (0-35) Alanine Aminotransferase (ALT/SGPT) 16 U/L (0-56) Alkaline Phosphatase 117 U/L (0-126) C-Reactive Protein 0.6 mg/dl (<1.0) Total Protein 6.2 g/dl (6.3-8.2) Albumin 3.6 g/dl (3.5-5.0) White Blood Count 13.9 k/uL (4.5-11.0) Red Blood Count 4.08 M/uL (4.17-5.56) Hemoglobin 13.0 g/dL (12.0-16.0) Hematocrit 39.1 % (34.0-47.0) Mean Corpuscular Volume 95.8 fL (80.0-96.0) Mean Corpuscular Hemoglobin 31.7 pg (26.0-33.0) Mean Corpuscular Hemoglobin Concent 33.1 g/dL (32.0-36.0) Red Cell Distribution Width 13.6 % (11.5-14.5) Platelet Count 251 K/uL (150-450) Mean Platelet Volume 10.3 fL (7.2-11.1) Neutrophils (%) (Auto) 82.7 % (39.4-72.5) Lymphocytes (%) (Auto) 6.3 % (17.6-49.6) Monocytes (%) (Auto) 10.2 % (4.1-12.4) Eosinophils (%) (Auto) 0.4 % (0.4-6.7) Basophils (%) (Auto) 0.4 % (0.3-1.4) Nucleated RBC Relative Count (auto) 0.0 /100WBC Neutrophils # (Auto) 11.5 K/uL (2.0-7.4) Lymphocytes # (Auto) 0.9 K/uL (1.3-3.6) Monocytes # (Auto) 1.4 K/uL (0.3-1.0) Eosinophils # (Auto) 0.1 K/uL (0.0-0.5) Basophils # (Auto) 0.1 K/uL (0.0-0.1) Nucleated RBC Absolute Count (auto) 0.00 K/uL Erythrocyte Sedimentation Rate 6 mm/HOUR (0-30) Prothrombin Time 13.0 seconds (12.0-14.4) Prothromb Time International Ratio 0.98 Activated Partial Thromboplast Time 25 seconds (23-35) Coagulation Test 06/21/18 03:19 Prothrombin Time 13.0 seconds Prothromb Time International Ratio 0.98 Activated Partial Thromboplast Time 25 seconds EKG/Imaging Imaging HEAD CT: Indication: Severe headache. Technique: Contiguous axial sections were obtained from the base to the vertex without contrast enhancement. One of the following dose optimization techniques was utilized in the performance of this exam: Automated exposure control; adjustment of the mA and/or kV according to the patient's size; or use of an iterative reconstruction technique. Specific details can be referenced in the facility's radiology CT exam operational policy. Comparison: 06/04/2017 Impression: A large area of acute intraparenchymal hemorrhage is present in the right occipital and posterior temporal lobes, measuring approximately 8.5 x 4.2 x 3.7 cm. A small amount of subarachnoid and intraventricular hemorrhage is also present in the area. There is localized edema and mass effect, with compression of the occipital horn of the right lateral ventricle. There is no shift of the midline structures. There is chronic cortical atrophy and periventricular white matter disease. The ventricular structures are otherwise unchanged. The skeletal structures appear intact and unremarkable. There are no signs of fracture or soft tissue deformity. The paranasal sinuses and mastoid air cells are clear. Impression: There is a large area of acute hemorrhage in the right occipital and posterior temporal lobes, measuring approximately 8.5 x 4.2 x 3.7 cm. There is a smaller component of subarachnoid and intraventricular hemorrhage. A preliminary report was called to Dr. Arias at [facility] at 0305 hours. Report Dictated By: Segundo Hsu MD at 06/21/2018 3:04 AM ED Course/Re-evaluation Clinical Indication for ER IV: IV Access ED Course IV started and blood work obtained. CT scan of the head noncontrast was obtained and does show a large intraparenchymal bleed as noted. Patient is on a daily aspirin but no other blood thinners. Blood pressure and vital signs are normal. I spoke with the patient about the problem and indicated that we would need to transfer her. I called and spoke with Dr. Moss, neurology at [facility], who accepted the patient for transfer. She is a FULL CODE, and I reviewed code status with her and family. Neurosurgery will be Dr. Guan. We are arranging ground transport, no air transport is available. Decision to Disposition Date: Jun 21, 2018 Decision to Disposition Time: 03:31 Transfer Facility Patient was transferred to [facility] via ambulance. The transfer was emergent, and was required because the capabilities of the receiving hospital. Consent for transfer was obtained from the patient and her family ( and daughter). See EMTALA for transfer orders. Depart Departure Latest Vital Signs Vital Signs Date Time Temp Pulse Resp B/P (MAP) Pulse Ox O2 Delivery O2 Flow Rate FiO2 06/21/18 02:32 77 93 06/21/18 01:41 97.7 16 143/80 Room Air Impression: Primary Impression: Intraparenchymal hemorrhage of brain Condition: Condition Unchanged [facility] Jun [facility], 2018 01:52
--- NOTE | 2018-06-21 03:23 | RADIOLOGY IMAGING REPORT ---
FACILITY: [facility] PATIENT NAME: Myriam Scruggs : 1930 MR: [id number] V: [id number] EXAM DATE: ORDERING PHYSICIAN: JOIE ARIAS TECHNOLOGIST: Location: [facility] Patient: Myriam Scruggs : 1930 Visit/Account:[id number] Date of Sevice: 06/21/[address]: Indication: Severe headache. Technique: Contiguous axial sections were obtained from the base to the vertex without contrast enhan cement. One of the following dose optimization techniques was utilized in the performance of this exam: Autom ated exposure control; adjustment of the mA and/or kV according to the patient's size; or use of an i terative reconstruction technique. Specific details can be referenced in the facility's radiology CT exam operational policy. Comparison: 06/04/2017 Impression: A large area of acute intraparenchymal hemorrhage is present in the right occipital and p osterior temporal lobes, measuring approximately 8.5 x 4.2 x 3.7 cm. A small amount of subarachnoid a nd intraventricular hemorrhage is also present in the area. There is localized edema and mass effect, with compression of the occipital horn of the right lateral ventricle. There is no shift of the midl ine structures. There is chronic cortical atrophy and periventricular white matter disease. The ventricular structure s are otherwise unchanged. The skeletal structures appear intact and unremarkable. There are no signs of fracture or soft tissue deformity. The paranasal sinuses and mastoid air cells are clear. Impression: There is a large area of acute hemorrhage in the right occipital and posterior temporal l obes, measuring approximately 8.5 x 4.2 x 3.7 cm. There is a smaller component of subarachnoid and in traventricular hemorrhage. A preliminary report was called to Dr. Arias at [facility] at 0305 hours. Report Dictated By: Segundo Hsu MD at 06/21/2018 3:04 AM Report E-Signed By: Segundo Hsu MD at 06/21/2018 3:20 AM [id number]
[2018-06-21 03:43] LABS: PLATELET COUNT, AUTOMATED 251 K/uL (150-450)
[2018-06-21 03:44] LABS: INR 0.98
[2018-06-21 04:30] VITALS: BP 160/73
== END 2018-06-21 05:05 | disposition short-term general hospital (02) ==
LOC: ER 01:51
DX: I61.8 Other nontraumatic intracerebral hemorrhage (principal)
CPT/HCPCS: 36415; 70450; 82040; 82247; 82310; 82374; 82435; 82565; 82947; 84075; 84132; 84155; 84295; 84450; 84460; 84520; 85025; 85610; 85651; 85730; 86140; 99285

== ENCOUNTER → 2018-06-21 | Outpatient (CLI) | payer MEDICARE, OTHER ==
[2017-08-28 08:27] VITALS: BMI 26.4
== END ==
LOC: AMB 04:39
PROVIDERS: ATTEND Nurse Practitioner
DX: I61.9 Nontraumatic intracerebral hemorrhage, unspecified (principal); R07.9 Chest pain, unspecified

== ENCOUNTER → 2018-06-21 | Outpatient (CLI) | payer MEDICARE, OTHER ==
[2017-08-28 08:27] VITALS: BMI 26.4
== END ==
LOC: AMB 00:37
PROVIDERS: ATTEND Nurse Practitioner
DX: R51 Headache (principal); R19.7 Diarrhea, unspecified
CPT/HCPCS: A0425; A0426; A0429

== ENCOUNTER → 2018-07-04 | Outpatient (REF) | payer MEDICARE, OTHER ==
[2017-08-28 08:27] VITALS: BMI 26.4
== END ==
LOC: ZZLCC 08:18
PROVIDERS: ATTEND Family Medicine
DX: I62.01 Nontraumatic acute subdural hemorrhage (principal)
CPT/HCPCS: 82040; 82247; 82310; 82374; 82435; 82565; 82947; 84075; 84132; 84155; 84295; 84450; 84460; 84520

== ENCOUNTER → 2018-07-11 | Outpatient (REF) | payer MEDICARE, OTHER ==
[2017-08-28 08:27] VITALS: BMI 26.4
== END ==
LOC: ZZSENDIN 18:05
PROVIDERS: ATTEND Family Medicine
DX: I10 Essential (primary) hypertension (principal)
CPT/HCPCS: 82040; 82247; 82310; 82374; 82435; 82565; 82947; 84075; 84132; 84155; 84295; 84450; 84460; 84520

== ENCOUNTER → 2018-07-24 | Outpatient (REF) | payer OTHER ==
[2017-08-28 08:27] VITALS: BMI 26.4
== END ==
LOC: ZZLCC 07:36
PROVIDERS: ATTEND Family Medicine
DX: I69.291 Dysphagia following other nontraumatic intracranial hemorrhage (principal)
CPT/HCPCS: 82040; 82247; 82310; 82374; 82435; 82565; 82947; 84075; 84132; 84155; 84295; 84450; 84460; 84520

== ENCOUNTER → 2018-07-31 | Outpatient (REF) | payer OTHER ==
[2017-08-28 08:27] VITALS: BMI 26.4
== END ==
LOC: ZZLCC 16:21
PROVIDERS: ATTEND Family Medicine
DX: N32.81 Overactive bladder (principal)
CPT/HCPCS: 81001

== ENCOUNTER → 2018-08-06 | Outpatient (REF) | payer OTHER ==
[2017-08-28 08:27] VITALS: BMI 26.4
== END ==
LOC: ZZLCC 08:32
PROVIDERS: ATTEND Family Medicine
DX: I11.0 Hypertensive heart disease with heart failure (principal); I50.9 Heart failure, unspecified
CPT/HCPCS: 82040; 82247; 82310; 82374; 82435; 82565; 82947; 84075; 84132; 84155; 84295; 84450; 84460; 84520

== ENCOUNTER → 2018-08-16 | Outpatient (REF) | payer MEDICARE, OTHER ==
[2017-08-28 08:27] VITALS: BMI 26.4
== END ==
LOC: ZZLCC 08:09
PROVIDERS: ATTEND Family Medicine
DX: E64.0 Sequelae of protein-calorie malnutrition (principal)
CPT/HCPCS: 82040; 82247; 82310; 82374; 82435; 82565; 82947; 84075; 84132; 84155; 84295; 84450; 84460; 84520

== ENCOUNTER → 2018-09-06 | Outpatient (REF) | payer MEDICARE, OTHER ==
[2017-08-28 08:27] VITALS: BMI 26.4
== END ==
LOC: ZZLCC 08:43
PROVIDERS: ATTEND Family Medicine
DX: I62.9 Nontraumatic intracranial hemorrhage, unspecified (principal); H81.09 Meniere's disease, unspecified ear; R60.0 Localized edema; I50.9 Heart failure, unspecified; N32.81 Overactive bladder; I10 Essential (primary) hypertension; Z43.1 Encounter for attention to gastrostomy; F33.9 Major depressive disorder, recurrent, unspecified; R13.12 Dysphagia, oropharyngeal phase; I69.291 Dysphagia following other nontraumatic intracranial hemorrhage; R09.02 Hypoxemia; M62.81 Muscle weakness (generalized)
CPT/HCPCS: 82040; 82247; 82310; 82374; 82435; 82565; 82947; 84075; 84132; 84155; 84295; 84450; 84460; 84520

== ENCOUNTER → 2018-09-25 | Outpatient (REF) | payer MEDICARE, OTHER ==
[2017-08-28 08:27] VITALS: BMI 26.4
== END ==
LOC: ZZLCC 15:21
PROVIDERS: ATTEND Family Medicine
DX: Z43.1 Encounter for attention to gastrostomy (principal)
CPT/HCPCS: 82040; 82247; 82310; 82374; 82435; 82565; 82947; 84075; 84132; 84155; 84295; 84450; 84460; 84520

== ENCOUNTER → 2018-10-10 | Outpatient (REF) | payer MEDICARE, OTHER ==
[2017-08-28 08:27] VITALS: BMI 26.4
== END ==
LOC: ZZLCC 09:10
PROVIDERS: ATTEND Family Medicine
DX: I62.9 Nontraumatic intracranial hemorrhage, unspecified (principal); R60.9 Edema, unspecified
CPT/HCPCS: 82040; 82247; 82310; 82374; 82435; 82565; 82947; 84075; 84132; 84155; 84295; 84450; 84460; 84520

== ENCOUNTER → 2018-10-23 | Outpatient (REF) | payer OTHER ==
[2017-08-28 08:27] VITALS: BMI 26.4
== END ==
LOC: ZZLCC 08:27
PROVIDERS: ATTEND Family Medicine
DX: E64.0 Sequelae of protein-calorie malnutrition (principal)
CPT/HCPCS: 82040; 82247; 82310; 82374; 82435; 82565; 82947; 84075; 84132; 84155; 84295; 84450; 84460; 84520

== ENCOUNTER 2018-11-02 10:55 | Outpatient (RCR) | payer MEDICARE, OTHER ==
[2017-08-28 08:27] VITALS: BMI 26.4
[2018-10-23 14:27] VITALS: BP 120/52
[2018-10-23 14:55] LABS: PLATELET COUNT, AUTOMATED 254 K/uL (150-450)
[2018-11-02 11:04] VITALS: BP 127/62
[2018-11-02] MEDS ORDERED: FURO40TA35 PO (13:12)
[2018-11-02] MEDS ORDERED: LIDO1ADH44 (13:12)
[2018-11-02] MEDS ORDERED: CARV25TA78 PO (13:12)
[2018-11-02] MEDS ORDERED: CLON-327 PO (13:12)
[2018-11-02] MEDS ORDERED: TOLT1TAB13 PO (13:12)
[2018-11-02] MEDS ORDERED: AMLO-127 PO (13:12)
[2018-11-02] MEDS ORDERED: ONDA-2 PO (13:12)
[2018-11-02] MEDS ORDERED: CITA-145 PO (13:12)
[2018-11-02] MEDS ORDERED: PANT40TA65 PO (13:15)
--- NOTE | 2018-11-02 19:31 | ONCOLOGY FOLLOW UP NOTE ---
EVENT DATE: November 02, 2018 DIAGNOSES 1. Monoclonal gammopathy of unknown significance. 2. Hypertension. CHIEF COMPLAINT Patient is here today for followup of her monoclonal gammopathy of unknown significance. HEMATOLOGY HISTORY Myriam Scruggs is an 88-year-old female who presented with hypercalcemia and renal dysfunction. Patient had a serum protein electrophoresis for evaluation, which demonstrated a monoclonal spike of 0.2 g/dL. HISTORY OF PRESENT ILLNESS Patient is here today for followup of her monoclonal gammography of unknown significance. Patient had a fall recently and hit her head, and she was admitted in [place] for multiple weeks. She is currently in a mcc. She had a feeding tube, which was discontinued recently, and she is doing fine currently. She is complaining of some cough. She has lower back pain, and she is weak, tired, and fatigued. PAST MEDICAL HISTORY 1. Hypertension. 2. Platelet dysfunction. PAST SURGICAL HISTORY 1. Total abdominal hysterectomy. 2. Bilateral salpingo-oophorectomy. 3. Abdominal surgery for maybe ruptured viscus. The patient is not clear. 4. Bladder repair surgery. FAMILY HISTORY Negative for cancer or blood disease. SOCIAL HISTORY The patient is with two children. Denies any abuse of tobacco, alcohol, or drugs. CURRENT MEDICATIONS 1. Lasix 20 mg daily. 2. Aspirin 81 mg daily. 3. Metoprolol 25 mg twice day. 4. Lisinopril 5 mg daily. 5. Toviaz 8 mg at bedtime. ALLERGIES TETANUS, which she calls skin rash, and the patient was swollen up, and she was choked up, too. REVIEW OF SYSTEMS CONSTITUTIONAL: No appetite or weight change. No fever, chills, or sweating. No recent infection. HEENT: Ears: No tinnitus or hearing problem. Nose: No nasal discharge or epistaxis. Throat: No sore throat or mouth ulcers. Eyes: No diplopia or visual changes. RESPIRATORY: No shortness of breath. She has some dry cough. No expectoration or hemoptysis. CARDIOVASCULAR: No chest pain, orthopnea, or paroxysmal nocturnal dyspnea (PND). No edema. No palpitations. GASTROINTESTINAL: No nausea or vomiting. No diarrhea or constipation. No change in bowel movements. No heartburn or swallowing difficulties. No abdominal pain. No jaundice. No hematemesis, melena, or rectal bleeding. GENITOURINARY: No hematuria or dysuria. MUSCULOSKELETAL: She has lower back pain. NEUROLOGIC: No tingling or numbness in the hands or feet. No headaches or convulsions. HEMATOLOGIC/LYMPHATIC: No bleeding or easy bruising. She is weak, tired, and fatigued. No enlarged lymph nodes. SKIN: No skin rash or lumps. PSYCHIATRIC: No anxiety or depression. PHYSICAL EXAMINATION GENERAL: Looks stable. Well developed, well nourished, and in no acute distress. VITAL SIGNS: Blood pressure 127/62, pulse 69 per minute, respirations 16 per minute, temperature 98.3, pulse ox 90% on room air. HEENT: Head: Atraumatic. No sinus tenderness to palpation. Eyes: No icterus or conjunctivitis. Mouth and Throat: No oral thrush or mucositis. NECK: Supple. No cervical or supraclavicular lymphadenopathy. LUNGS: Clear to auscultation and percussion bilaterally. HEART: Regular rate and rhythm. No gallops, murmurs, clicks, or rubs. ABDOMEN: Soft and lax. No tenderness. No hepatosplenomegaly. No masses. EXTREMITIES: No cyanosis, clubbing, or edema. LYMPHATICS: No peripheral lymphadenopathy. NEUROLOGIC: Conscious, alert, and oriented times three. No focal motor or sensory deficits. PSYCHIATRIC: Mood and affect appear normal. SKIN: No skin rash, bruise, or purpuric eruption. DIAGNOSTIC DATA CBC showed white count 5.1, hemoglobin 12.7, hematocrit 39.3, platelets 254,000. Chem panel normal except BUN 27, blood sugar 113, albumin 3.4, and uric acid 8.1. ASSESSMENT 1. Monoclonal gammopathy of unknown significance. Serum protein immunoelectrophoresis shows an M-spike of IgG lambda at 0.22 g/dL. Currently, her serum protein immunoelectrophoresis shows a faint band in the IgG lambda suggestive of specific immune response or an early monoclonal protein. Her kappa free light chain is 6.05, lambda free light chain is 3.03, and kappa to lambda free light chain ratio is 2. Beta-2 microglobulin is 3.9. This is also really even better than before. I am planning to continue followup. I will see her again in six months with CBC, chemistry panel, LDH, folic acid, and myeloma profile. 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 I am planning to put her on allopurinol 100 mg once daily. 3. Hypertension, on treatment. 4. Diabetes mellitus, on treatment. 5. History of right hip fracture August 2017. PLAN 1. Continue followup. 2. Patient to return in six months with CBC, chem panel, LDH, uric acid, and myeloma profile. 3. Patient to contact us for any new concerns or complaints. MTDD
== END 2018-11-07 15:47 | disposition home or self-care (01) ==
LOC: ONC 10:55
PROVIDERS: ATTEND Internal Medicine Hematology
DX: D47.2 Monoclonal gammopathy (principal); E79.0 Hyperuricemia without signs of inflammatory arthritis and tophaceous disease; I10 Essential (primary) hypertension; E11.9 Type 2 diabetes mellitus without complications; Z79.899 Other long term (current) drug therapy; R05 Cough; R53.1 Weakness; R53.83 Other fatigue
CPT/HCPCS: 36415; 82232; 83615; 83883; 84550; 85025; 86334; G0463; 99212

== ENCOUNTER → 2018-11-23 | Outpatient (REF) | payer MEDICARE, OTHER ==
[2017-08-28 08:27] VITALS: BMI 26.4
[~2018-11-23] MED LIST changes: +AMLO-127 PO; +CARV25TA78 PO; +CITA-145 PO; +CLON-327 PO; +FURO40TA35 PO; +LIDO1ADH44; +ONDA-2 PO; +TOLT1TAB13 PO
== END ==
LOC: ZZLCC 07:00
PROVIDERS: ATTEND Family Medicine
DX: Z02.9 Encounter for administrative examinations, unspecified (principal)
CPT/HCPCS: 82040; 82247; 82310; 82374; 82435; 82565; 82947; 84075; 84132; 84155; 84295; 84450; 84460; 84520

== ENCOUNTER → 2018-12-11 | Outpatient (REF) | payer MEDICARE, OTHER ==
[2017-08-28 08:27] VITALS: BMI 26.4
== END ==
LOC: ZZLCC 06:37
PROVIDERS: ATTEND Family Medicine
DX: R94.4 Abnormal results of kidney function studies (principal); R79.89 Other specified abnormal findings of blood chemistry
CPT/HCPCS: 82040; 82247; 82310; 82374; 82435; 82565; 82947; 84075; 84132; 84155; 84295; 84450; 84460; 84520